=== PATIENT | male | born 1965 | race Caucasian/White ===

== ENCOUNTER 2023-01-02 09:00 | Emergency (ER) | payer BC ==
[2023-01-02 09:06] VITALS: TEMP 97
[2023-01-02] MEDS ORDERED: MORPHINE SULFATE 2 MG INJ IV ONE (09:11)
[2023-01-02] MEDS ORDERED: Nitrostat 0.4 MG (ED) SL ONE ×2 (09:11→09:17)
[2023-01-02] MEDS ORDERED: Zofran 4 MG/2 ML VIAL IV ONE (09:11)
--- NOTE | 2023-01-02 09:11 | ERPHSYRPT ---
- History of Present Illness Time Seen by Provider: 01/02/23 09:06 Historian: patient Exam Limitations: no limitations Physician History: This is a 57-year-old white male patient who presents to the emergency room with chest pain that began yesterday. It is sharp, located in the left anterior chest and goes straight through to his left scapula and down his left arm. Patient has a history of myocardial infarction and is on Plavix. His small animal caretaker is Dr. Jimenez. He just saw his small animal caretaker 2 weeks ago and everything checked out fine. Patient took all of his medication this morning except for his lisinopril. He states his potassium has been running high and so we held off on his lisinopril today. He did start a new lipid-lowering agent within the last couple of weeks. Patient denies shortness of breath. He has no fever, he denies cough. Patient took his Plavix and a full strength aspirin prior to arrival. He did not take any nitroglycerin. Timing/Duration: yesterday Quality: sharpness, stabbing Location: other (Left anterior chest) Chest Pain Radiation: arm (Left arm), back (Straight through to his left scapula) Severity of Pain-Max: mild (To moderate) Severity of Pain-Current: mild (To moderate) Modifying Factors: Improves With: nothing Associated Symptoms: denies symptoms Prior Chest Pain/Cardiac Workup: cardiac cath, heart attack Nitro Today/Relief: no nitro taken today Aspirin Treatment Today: 325 mg x 1, provided at home Allergies/Adverse Reactions: No Known Drug Allergies Allergy (Unverified 01/02/23 09:02) Travel Risk - International Travel Have you traveled outside of the country in past 3 weeks: No - Coronavirus Screening Are you exhibiting any of the following symptoms?: No Close contact with a COVID-19 positive Pt in past 14-21 Days: No - Review of Systems Constitutional: No Symptoms Eyes: No Symptoms Ears, Nose, & Throat: No Symptoms Respiratory: No Symptoms Cardiac: Chest Pain Abdominal/Gastrointestinal: No Symptoms Genitourinary Symptoms: No Symptoms Musculoskeletal: No Symptoms Skin: No Symptoms Neurological: No Symptoms Psychological: No Symptoms Endocrine: No Symptoms Hematologic/Lymphatic: No Symptoms Immunological/Allergic: No Symptoms All Other Systems: Reviewed and Negative - Past Medical History Pertinent Past Medical History: Yes Cardiac History: High Cholesterol, Hypertension Endocrine Medical History: Diabetes Type II - Past Surgical History Past Surgical History: Yes Cardiac: Cardiac Catheterization, Cardiac Stent - Social History Drug Use: none - Nursing Vital Signs Nursing Vital Signs: Initial Vital Signs Pulse Rate 70 01/02/23 09:01 Pain Scale Pain Intensity 3 - Physical Exam General Appearance: no apparent distress, alert, anxiety Eye Exam: PERRL/EOMI, eyes nml inspection Ears, Nose, Throat Exam: normal ENT inspection, moist mucous membranes Neck Exam: normal inspection, non-tender, supple, full range of motion Respiratory Exam: normal breath sounds, chest tenderness, lungs clear, airway intact, No respiratory distress Cardiovascular Exam: regular rate/rhythm, normal heart sounds, normal peripheral pulses Gastrointestinal/Abdomen Exam: soft, normal bowel sounds, No tenderness Rectal Exam: not done Back Exam: normal inspection, normal range of motion, No CVA tenderness, No vertebral tenderness Extremity Exam: normal inspection, normal range of motion, pelvis stable Neurologic Exam: alert, oriented x 3, cooperative, peanut sheller II-XII nml as tested, normal mood/affect, nml cerebellar function, nml station & gait, sensation nml Skin Exam: normal color, warm, dry Lymphatic Exam: No adenopathy SpO2 Interpretation: normal SpO2: 98 O2 Delivery: Room Air - Course Nursing assessment & vital signs reviewed: Yes EKG Interpreted by Me: RATE (76), Sinus Rhythm, NORMAL AXIS, NORMAL INTERVALS, NORMAL QRS, Non-specific ST Changes, Other (No acute ischemic changes on today's twelve-lead EKG.) Ordered Tests: Active Orders 24 hr Category Date Time Status EKG-ER Only STAT Care 01/02/23 09:11 Active IV Insertion STAT Care 01/02/23 09:11 Active Pulse Oximetry (ED) STAT Care 01/02/23 09:11 Active CHEST 1 VIEW (PORTABLE) Stat Exams 01/02/23 09:21 Taken CBC W DIFF Stat Lab 01/02/23 09:00 Completed CMP Stat Lab 01/02/23 09:00 Completed D-DIMER QUANTITATIVE Stat Lab 01/02/23 09:00 Completed NT PRO BNPII Stat Lab 01/02/23 09:00 Completed TROPONIN Q4H Lab 01/02/23 09:00 Completed TROPONIN Q4H Lab 01/02/23 12:54 Completed TROPONIN Q4H Lab 01/02/23 17:15 Ordered Medication Summary Discontinued Medications Generic Name Dose Route Start Last Admin Trade Name Michelle PRN Reason Stop Dose Admin Morphine Sulfate 2 mg 01/02/23 09:11 01/02/23 09:20 Morphine Sulfate 2 Mg/Ml Inj IV 01/02/23 09:12 2 mg STAT ONE Administration Morphine Sulfate Confirm 01/02/23 09:17 Morphine Sulfate 2 Mg/Ml Inj Administered 01/02/23 09:18 Dose 2 mg .ROUTE .STK-MED ONE Nitroglycerin 0.4 mg 01/02/23 09:11 01/02/23 09:21 Nitroglycerin 0.4 Mg (Ed) 0.4 Mg Tab.Subl SL 01/02/23 09:12 0.4 mg STAT ONE Administration Nitroglycerin Confirm 01/02/23 09:17 Nitroglycerin 0.4 Mg (Ed) 0.4 Mg Tab.Subl Administered 01/02/23 09:18 Dose 0.4 mg SL .STK-MED ONE Ondansetron HCl 4 mg 01/02/23 09:11 01/02/23 09:20 Ondansetron Hcl 4 Mg/2 Ml Vial IV 01/02/23 09:12 4 mg STAT ONE Administration Ondansetron HCl Confirm 01/02/23 09:17 Ondansetron Hcl 4 Mg/2 Ml Vial Administered 01/02/23 09:18 Dose 4 mg .ROUTE .STK-MED ONE Lab/Rad Data: Laboratory Result Diagrams 01/02/23 09:00 01/02/23 09:00 Laboratory Results 01/02/23 01/02/23 01/02/23 Range/Units 12:54 09:00 09:00 WBC (4.0-10.5) x10^3/uL RBC (4.1-5.6) x10^6/uL Hgb (12.5-18.0) g/dL Hct (42-50) % MCV (78-100) fL MCH (26-32) pg MCHC (32-36) g/dL RDW (11.5-14.0) % Plt Count (150-450) x10^3/uL MPV (7.5-11.0) fL Gran % (36.0-66.0) % Immature Gran % (Auto) (0.00-0.4) % Nucleat RBC Rel Count (0.00-0.1) % Eos # (Auto) (0-0.5) x10^3/uL Immature Gran # (Auto) (0.00-0.03) x10^3u/L Absolute Lymphs (auto) (1.0-4.6) x10^3/uL Absolute Monos (auto) (0.0-1.3) x10^3/uL Absolute Nucleated RBC (0.00-0.01) x10^3u/L Lymphocytes % (24.0-44.0) % Monocytes % (0.0-12.0) % Eosinophils % (0.00-5.0) % Basophils % (0.0-0.4) % Absolute Granulocytes (1.4-6.9) x10^3/uL Basophils # (0-0.4) x10^3/uL D-Dimer 0.20 (0.0-0.50) mg/L Sodium (137-145) mmol/L Potassium (3.5-5.1) mmol/L Chloride (98-107) mmol/L Carbon Dioxide (22-30) mmol/L Anion Gap (5-15) MEQ/L BUN (9-20) mg/dL Creatinine (0.66-1.25) mg/dL Estimated GFR ML/MIN Glucose (74-106) mg/dL Calcium (8.4-10.2) mg/dL Total Bilirubin (0.2-1.3) mg/dL AST (17-59) U/L ALT (0-50) U/L Alkaline Phosphatase (38-126) U/L Troponin I < 0.012 < 0.012 (0.000-0.034) ng/mL NT-Pro-B Natriuret Pep (<300) pg/mL Serum Total Protein (6.3-8.2) g/dL Albumin (3.5-5.0) g/dL 01/02/23 01/02/23 Range/Units 09:00 09:00 WBC 7.5 (4.0-10.5) x10^3/uL RBC 4.46 (4.1-5.6) x10^6/uL Hgb 14.7 (12.5-18.0) g/dL Hct 40.9 L (42-50) % MCV 91.7 (78-100) fL MCH 33.0 H (26-32) pg MCHC 35.9 (32-36) g/dL RDW 11.2 L (11.5-14.0) % Plt Count 253 (150-450) x10^3/uL MPV 8.8 (7.5-11.0) fL Gran % 53.7 (36.0-66.0) % Immature Gran % (Auto) 0.5 H (0.00-0.4) % Nucleat RBC Rel Count 0.0 (0.00-0.1) % Eos # (Auto) 0.28 (0-0.5) x10^3/uL Immature Gran # (Auto) 0.04 H (0.00-0.03) x10^3u/L Absolute Lymphs (auto) 2.47 (1.0-4.6) x10^3/uL Absolute Monos (auto) 0.62 (0.0-1.3) x10^3/uL Absolute Nucleated RBC 0.00 (0.00-0.01) x10^3u/L Lymphocytes % 32.9 (24.0-44.0) % Monocytes % 8.3 (0.0-12.0) % Eosinophils % 3.7 (0.00-5.0) % Basophils % 0.9 (0.0-0.4) % Absolute Granulocytes 4.02 (1.4-6.9) x10^3/uL Basophils # 0.07 (0-0.4) x10^3/uL D-Dimer (0.0-0.50) mg/L Sodium 136 L (137-145) mmol/L Potassium 4.3 (3.5-5.1) mmol/L Chloride 103 (98-107) mmol/L Carbon Dioxide 23 (22-30) mmol/L Anion Gap 14.5 (5-15) MEQ/L BUN 15 (9-20) mg/dL Creatinine 0.71 (0.66-1.25) mg/dL Estimated GFR > 60.0 ML/MIN Glucose 235 H (74-106) mg/dL Calcium 9.4 (8.4-10.2) mg/dL Total Bilirubin 0.70 (0.2-1.3) mg/dL AST 25 (17-59) U/L ALT 35 (0-50) U/L Alkaline Phosphatase 65 (38-126) U/L Troponin I (0.000-0.034) ng/mL NT-Pro-B Natriuret Pep < 20.0 (<300) pg/mL Serum Total Protein 6.8 (6.3-8.2) g/dL Albumin 4.4 (3.5-5.0) g/dL - Progress Air Movement: good Progress Note: 01/02/23 09:42 Chest x-ray shows no acute cardiopulmonary process. This chest x-ray was interpreted by me. The patient's medical issue is 1 of moderate complexity. The level of complexity in the work-up performed is based on review of the patient's past medical history, review of the patient medication list, review of the patient's drug allergy list, history of present illness and physical findings on examination. The work-up in this patient includes a chest x-ray, twelve-lead EKG, troponin level, D-dimer level, CBC and CMP. I reviewed the, and interpreted the chest x-ray as above. We will follow-up on the remainder of the studies and determine the next steps in this patient's management. 01/02/23 12:37 Repeat, 3-hour twelve-lead EKG was performed and I interpreted it. The heart rate is 67 bpm. There is normal axis. It is sinus rhythm. There is normal intervals. There are nonspecific ST changes. This twelve-lead EKG is not d ifferent than the one performed 3 hours ago. There are no acute ischemic changes on this repeat twelve-lead EKG. Clinically, the patient was reexamined. There is resolution of his chest pain. He has no short of breath. 01/02/23 12:39 We are waiting the 3-hour troponin level. If this level is normal, we will discharge the patient to home. Patient is to call his small animal caretaker on the morning of 01/03/2023 to make arrangements for a follow-up appointment for further evaluation and management. Blood Culture(s) Obtained: No Antibiotics given: No Counseled pt/family regarding: lab results, diagnosis, need for follow-up, rad results Medical Desision Making - Independent Historian Additional History obtained from: Spouse - Diagnostic Testing Diagnostic test were ordered, analyzed, and reviewed by me: Yes Radiological Interpretation: Interpreted by me, Reviewed by me - Risk of complications Low Risk: Low risk of morbidity from additional dx testing or treatment - Departure Departure Disposition: Home Clinical Impression: Chest pain Condition: Stable Critical Care Time: No Referrals: TYRONE GREEN [Primary Care Provider] - Follow up/PCP as directed Additional Instructions: Take your medication as prescribed. Call your small animal caretaker on the morning of 01/03/2023 to make arrangements for follow-up appointment for further evaluation and management.
[2023-01-02] MEDS ORDERED: MORPHINE SULFATE 2 MG INJ ONE (09:17)
[2023-01-02] MEDS ORDERED: Zofran 4 MG/2 ML VIAL ONE (09:17)
[2023-01-02 09:26] LABS: Absolute Neutrophil Ct (ANC) 4.02 x10^3/uL (1.4-6.9); BASOPHIL % 0.9 % (0.0-0.4); Basophil (Absolute #) 0.07 x10^3/uL (0-0.4); Eosinophil % 3.7 % (0.00-5.0); Eosinophil (Absolute #) 0.28 x10^3/uL (0-0.5); Hematocrit 40.9 % (42-50); Hemoglobin 14.7 g/dL (12.5-18.0); IMMATURE GRAN # 0.04 x10^3u/L (0.00-0.03); IMMATURE GRAN % 0.5 % (0.00-0.4); Lymphocyte (Absolute #) 2.47 x10^3/uL (1.0-4.6); Lymphocytes % 32.9 % (24.0-44.0); Mean Cell Volume 91.7 fL (78-100); Mean Corpuscular Hgb Concent. 35.9 g/dL (32-36); Mean Platelet Volume 8.8 fL (7.5-11.0); Monocyte (Absolute #) 0.62 x10^3/uL (0.0-1.3); Monocytes % 8.3 % (0.0-12.0); Neutrophil % 53.7 % (36.0-66.0); Platelet Count 253 x10^3/uL (150-450); Red Blood Count 4.46 x10^6/uL (4.1-5.6); Red Cell Distribution Width 11.2 % (11.5-14.0); White Blood Count 7.5 x10^3/uL (4.0-10.5)
[2023-01-02 09:48] LABS: ALBUMIN 4.4 g/dL (3.5-5.0); ALKALINE PHOSPHATASE 65 U/L (38-126); ANION GAP 14.5 MEQ/L (5-15); BLOOD UREA NITROGEN 15 mg/dL (9-20); CHLORIDE 103 mmol/L (98-107); Calcium 9.4 mg/dL (8.4-10.2); Carbon Dioxide 23 mmol/L (22-30); Creatinine 1 0.71 mg/dL (0.66-1.25); EST GLOMERULAR FILTRATION RATE > 60.0 ML/MIN; Glucose 235 mg/dL (74-106); NT PRO BNPII < 20.0 pg/mL (<300); Potassium 4.3 mmol/L (3.5-5.1); SGOT/AST 25 U/L (17-59); SGPT/ALT 35 U/L (0-50); SODIUM 136 mmol/L (137-145); Total Protein 6.8 g/dL (6.3-8.2)
[2023-01-02 12:42] VITALS: O2SAT 98
[2023-01-02 13:38] VITALS: BP 159/75; PULSE 70; RESP 19
--- NOTE | 2023-01-02 19:46 | XRAY ---
Indication: Chest pain Comparison: None Portable apical lordotic chest inflated and clear. Heart and mediastinal structures within normal limits. Bony thorax intact with mild degenerative changes. Impression: Nonacute chest.
== END 2023-01-02 13:42 | disposition home or self-care (01) ==
LOC: ED 09:00
DX: R07.9 Chest pain, unspecified (principal); E78.5 Hyperlipidemia, unspecified; I10 Essential (primary) hypertension; E11.9 Type 2 diabetes mellitus without complications; Z79.02 Long term (current) use of antithrombotics/antiplatelets; Z79.899 Other long term (current) drug therapy
CPT/HCPCS: 36000; 36415; 71045; 80053; 83880; 84484; 85025; 85379; 93005; 93041; 94760; 96374; 96375; 99284; J2270; J2405; A9270-GY

== ENCOUNTER 2024-07-16 08:35 | Emergency (ER) | payer BC, OTHER ==
[2024-07-16 08:39] VITALS: TEMP 97.5
[2024-07-16 08:57] LABS: Absolute Neutrophil Ct (ANC) 5.53 x10^3/uL (1.78-5.38); BASOPHIL % 0.8 % (0.2-1.2); Basophil (Absolute #) 0.07 x10^3/uL (0.01-0.08); Eosinophil % 1.8 % (0.8-7.0); Eosinophil (Absolute #) 0.15 x10^3/uL (0.04-0.54); Hematocrit 43.6 % (40.1-51.0); Hemoglobin 16.1 g/dL (13.7-17.5); IMMATURE GRAN # 0.03 x10^3u/L (0.001-0.031); IMMATURE GRAN % 0.4 % (0.001-0.429); Lymphocyte (Absolute #) 1.87 x10^3/uL (1.32-3.57); Lymphocytes % 21.8 % (21.8-53.1); Mean Cell Volume 89.2 fL (79.0-92.2); Mean Corpuscular Hemoglobin 32.9 pg (25.7-32.2); Mean Corpuscular Hgb Concent. 36.9 g/dL (32.3-36.5); Mean Platelet Volume 8.2 fL (9.4-12.4); Monocyte (Absolute #) 0.91 x10^3/uL (0.30-0.82); Monocytes % 10.6 % (5.3-12.2); Neutrophil % 64.6 % (34.0-67.9); Platelet Count 291 x10^3/uL (163-337); Red Blood Count 4.89 x10^6/uL (4.63-6.08); Red Cell Distribution Width 11.7 % (11.6-14.4); White Blood Count 8.6 x10^3/uL (4.23-9.07)
--- NOTE | 2024-07-16 09:01 | ERPHSYRPT ---
- History of Present Illness Time Seen by Provider: 07/16/24 08:40 Historian: patient Exam Limitations: no limitations Patient Subjective Stated Complaint: pt here for burning to chest,nausea, dizziness off and on since tuesday, he started 2 new meds and thinks maybe that i s the cause. he stopped taking them Triage Nursing Assessment: pt alert, walked in, resp easy, skin w.d.p, chest clear, abd soft, moves all ext well. Physician History: This is a 58-year-old white male patient who sees printer helper Dr. Jimenez and h as a history of cardiac stent and is on Plavix. He also has a history of hypertension, hyperlipidemia and type 2 diabetes. On Tuesday prior to this evaluation, the patient has noticed intermittent heartburn symptoms, left chest fluttering. He started a new medicine, Farxiga on Tuesday. He thought that this may be contributing to his symptoms so he stopped that medicine. He has had various locations of the intermittent fluttering. Today, he has some dizziness symptoms. He is not short of breath. He has had no nausea vomiting or diarrhea symptoms. Timing/Duration: day(s) (3), intermittent Quality: burning, other (Fluttering) Severity of Pain-Max: mild Severity of Pain-Current: mild Modifying Factors: Improves With: nothing Associated Symptoms: dizziness, No shortness of breath, No cough Prior Chest Pain/Cardiac Workup: cardiac cath, heart attack Nitro Today/Relief: no nitro taken today Aspirin Treatment Today: 81 mg x 4, provided by ED Allergies/Adverse Reactions: albuterol Adverse Reaction (Verified 07/16/24 08:37) Hx Tetanus, Diphtheria Vaccination/Date Given: No Hx Influenza Vaccination/Date Given: No Hx Pneumococcal Vaccination/Date Given: No Immunizations Up to Date: No Travel Risk - International Travel Have you traveled outside of the country in past 3 weeks: No - Emerging Infectious Disease Are you exhibiting symptoms associated with any current EIDs: No - Review of Systems Constitutional: No Symptoms Eyes: No Symptoms Ears, Nose, & Throat: No Symptoms Respiratory: No Symptoms Cardiac: Chest Pain (Described as left anterior fluttering sensation without radiation) Abdominal/Gastrointestinal: No Symptoms Genitourinary Symptoms: No Symptoms Musculoskeletal: No Symptoms Skin: No Symptoms Neurological: Dizziness (Remittent. None now) Psychological: No Symptoms Endocrine: No Symptoms Hematologic/Lymphatic: No Symptoms Immunological/Allergic: No Symptoms All Other Systems: Reviewed and Negative - Past Medical History Pertinent Past Medical History: Yes Cardiac History: Coronary Artery Disease, High Cholesterol, Hypertension Endocrine Medical History: Diabetes Type II - Past Surgical History Past Surgical History: Yes Cardiac: Cardiac Catheterization, Cardiac Stent - Social History Smoking Status: Current every day smoker Exposure to second hand smoke: Yes Drug Use: none - Social Determinants of Health Will the patient participate in the screening: Declined to provide - Nursing Vital Signs Nursing Vital Signs: Initial Vital Signs Temperature 97.5 F 07/16/24 08:38 Pulse Rate 86 07/16/24 08:38 Respiratory Rate 22 07/16/24 08:38 Blood Pressure 178/99 07/16/24 08:38 O2 Sat by Pulse Oximetry 100 07/16/24 08:38 Pain Scale Pain Intensity 0 - Physical Exam General Appearance: no apparent distress, alert, anxiety Eye Exam: PERRL/EOMI, eyes nml inspection Ears, Nose, Throat Exam: normal ENT inspection, moist mucous membranes Neck Exam: normal inspection, non-tender, supple, full range of motion Respiratory Exam: normal breath sounds, chest tenderness (Grabbed his left anterior chest fluttering), lungs clear, airway intact, No respiratory distress Cardiovascular Exam: regular rate/rhythm, normal heart sounds, normal peripheral pulses Gastrointestinal/Abdomen Exam: soft, normal bowel sounds, No tenderness Rectal Exam: not done Back Exam: normal inspection, normal range of motion, No CVA tenderness, No vertebral tenderness Extremity Exam: normal inspection, normal range of motion, pelvis stable Neurologic Exam: alert, oriented x 3, cooperative, polymer engineer II-XII nml as tested, normal mood/affect, nml cerebellar function, nml station & gait, sensation nml Skin Exam: normal color, warm, dry Lymphatic Exam: No adenopathy SpO2 Interpretation: normal SpO2: 95 O2 Delivery: Room Air - Course Nursing assessment & vital signs reviewed: Yes EKG Interpreted by Me: RATE (82), Sinus Rhythm, NORMAL AXIS, NORMAL INTERVALS, NORMAL QRS, NORMAL ST-T, Other (No acute ischemia on today's twelve-lead EKG. QTc is 463) Ordered Tests: Active Orders 24 hr Category Date Time Status High Wire Artist STAT Care 07/16/24 08:44 Active EKG-ER Only STAT Care 07/16/24 08:44 Active IV Insertion STAT Care 07/16/24 08:44 Active Pulse Oximetry (ED) STAT Care 07/16/24 08:44 Active CBC W DIFF Stat Lab 07/16/24 08:57 Completed CMP Stat Lab 07/16/24 08:57 Completed MAG [MAGNESIUM] Stat Lab 07/16/24 08:57 Completed NT PRO BNPII Stat Lab 07/16/24 08:57 Completed PROTIME WITH INR Stat Lab 07/16/24 08:57 Completed TROPONIN Q4H Lab 07/16/24 08:57 Completed TROPONIN Q4H Lab 07/16/24 11:02 Completed TROPONIN Q4H Lab 07/16/24 16:45 Ordered Medication Summary Discontinued Medications Generic Name Dose Route Start Last Admin Trade Name Freq PRN Reason Stop Dose Admin Aspirin 324 mg 07/16/24 08:44 07/16/24 09:10 Aspirin 81 Mg Tab.Chew PO 07/16/24 08:45 324 mg STAT ONE Administration Aspirin Confirm 07/16/24 09:09 Aspirin 81 Mg Tab.Chew Administered 07/16/24 09:10 Dose 324 mg .ROUTE .STK-MED ONE Lab/Rad Data: Laboratory Result Diagrams 07/16/24 08:57 07/16/24 08:57 Laboratory Results 07/16/24 07/16/24 07/16/24 Range/Units 11:02 08:57 08:57 WBC (4.23-9.07) x10^3/uL RBC (4.63-6.08) x10^6/uL Hgb (13.7-17.5) g/dL Hct (40.1-51.0) % MCV (79.0-92.2) fL MCH (25.7-32.2) pg MCHC (32.3-36.5) g/dL RDW (11.6-14.4) % Plt Count (163-337) x10^3/uL MPV (9.4-12.4) fL Gran % (34.0-67.9) % Immature Gran % (Auto) (0.001-0.429) % Nucleat RBC Rel Count (0.00-0.2) % Eos # (Auto) (0.04-0.54) x10^3/uL Immature Gran # (Auto) (0.001-0.031) x10^3u/L Absolute Lymphs (auto) (1.32-3.57) x10^3/uL Absolute Monos (auto) (0.30-0.82) x10^3/uL Absolute Nucleated RBC (0.00-0.012) x10^3u/L Lymphocytes % (21.8-53.1) % Monocytes % (5.3-12.2) % Eosinophils % (0.8-7.0) % Basophils % (0.2-1.2) % Absolute Granulocytes (1.78-5.38) x10^3/uL Basophils # (0.01-0.08) x10^3/uL PT 11.8 (9.4-12.5) SECONDS INR 1.09 (0.8-3.0) Sodium (135-145) mmol/L Potassium (3.5-5.1) mmol/L Chloride (98-107) mmol/L Carbon Dioxide (22-30) mmol/L Anion Gap (5-15) MEQ/L BUN (9-20) mg/dL Creatinine (0.66-1.25) mg/dL Estimated GFR ML/MIN Glucose (74-106) mg/dL Calcium (8.4-10.2) mg/dL Magnesium 2.1 (1.6-2.3) mg/dL Total Bilirubin (0.2-1.3) mg/dL AST (17-59) U/L ALT (0-50) U/L Alkaline Phosphatase (38-126) U/L Troponin I < 0.012 < 0.012 (0.000-0.033) ng/mL NT-Pro-B Natriuret Pep (<300) pg/mL Serum Total Protein (6.3-8.2) g/dL Albumin (3.5-5.0) g/dL 07/16/24 07/16/24 Range/Units 08:57 08:57 WBC 8.6 (4.23-9.07) x10^3/uL RBC 4.89 (4.63-6.08) x10^6/uL Hgb 16.1 (13.7-17.5) g/dL Hct 43.6 (40.1-51.0) % MCV 89.2 (79.0-92.2) fL MCH 32.9 H (25.7-32.2) pg MCHC 36.9 H (32.3-36.5) g/dL RDW 11.7 (11.6-14.4) % Plt Count 291 (163-337) x10^3/uL MPV 8.2 L (9.4-12.4) fL Gran % 64.6 (34.0-67.9) % Immature Gran % (Auto) 0.4 (0.001-0.429) % Nucleat RBC Rel Count 0.0 (0.00-0.2) % Eos # (Auto) 0.15 (0.04-0.54) x10^3/uL Immature Gran # (Auto) 0.03 (0.001-0.031) x10^3u/L Absolute Lymphs (auto) 1.87 (1.32-3.57) x10^3/uL Absolute Monos (auto) 0.91 H (0.30-0.82) x10^3/uL Absolute Nucleated RBC 0.00 (0.00-0.012) x10^3u/L Lymphocytes % 21.8 (21.8-53.1) % Monocytes % 10.6 (5.3-12.2) % Eosinophils % 1.8 (0.8-7.0) % Basophils % 0.8 (0.2-1.2) % Absolute Granulocytes 5.53 H (1.78-5.38) x10^3/uL Basophils # 0.07 (0.01-0.08) x10^3/uL PT (9.4-12.5) SECONDS INR (0.8-3.0) Sodium 138 (135-145) mmol/L Potassium 4.0 (3.5-5.1) mmol/L Chloride 100 (98-107) mmol/L Carbon Dioxide 24 (22-30) mmol/L Anion Gap 18.5 H (5-15) MEQ/L BUN 10 (9-20) mg/dL Creatinine 0.90 (0.66-1.25) mg/dL Estimated GFR 100.2 ML/MIN Glucose 163 H (74-106) mg/dL Calcium 10.0 (8.4-10.2) mg/dL Magnesium (1.6-2.3) mg/dL Total Bilirubin 1.10 (0.2-1.3) mg/dL AST 37 (17-59) U/L ALT 36 (0-50) U/L Alkaline Phosphatase 64 (38-126) U/L Troponin I (0.000-0.033) ng/mL NT-Pro-B Natriuret Pep < 20.0 (<300) pg/mL Serum Total Protein 8.1 (6.3-8.2) g/dL Albumin 5.1 H (3.5-5.0) g/dL - Progress Progress: improved, re-examined Air Movement: good Progress Note: 07/16/24 09:00 My medical decision making and the assignment of moderate complexity to this patient's medical issue today is based on review of the patient's past medical history, review of the patient's medication list, reviewed patient drug allergy list, history present illness and physical findings on examination. The workup in this patient includes placement of intravenous line, 4 baby aspirin chewable, CBC, CMP, magnesium level, BNP, troponin level, twelve-lead EKG. Differential diagnosis includes but is not limited to myocardial infarction, arrhythmia, electrolyte abnormalities, anxiety about health 07/16/24 11:39 I interpreted the patient's laboratory data results. Based on the laboratory data results, there are no acute, emergent medical issues. I interpreted the repeat, 2-hour, twelve-lead EKG that was performed on 07/16/2024 at 1107. The heart rate is 76. The pattern is sinus rhythm. There is normal axis, normal QRS and normal intervals. There is no evidence of any acute ischemia. QTc is 471 Blood Culture(s) Obtained: No Antibiotics given: No Counseled pt/family regarding: lab results, diagnosis, need for follow-up Medical Desision Making - Diagnostic Testing Diagnostic test were ordered, analyzed, and reviewed by me: Yes - Risk of complications Low Risk: Low risk of morbidity from additional dx testing or treatment - Departure Departure Disposition: Home Clinical Impression: Nonspecific chest pain Condition: Stable Critical Care Time: No Referrals: TYRONE GREEN [Primary Care Provider] - Follow up/PCP as directed Additional Instructions: Take all your medications as prescribed. Call your primary care provider and your printer helper today, 07/16/2024, to make arranges for follow-up appointment and to be seen in the next 3 to 5 days.
[2024-07-16] MEDS ORDERED: BABY ASPIRIN 81 MG CHEW ONE (09:09)
[2024-07-16] MEDS: BABY ASPIRIN 81 MG CHEW PO ONE (09:10)
[2024-07-16 09:11] LABS: INR 1.09 (0.8-3.0); PROTIME 11.8 SECONDS (9.4-12.5)
[2024-07-16 09:22] LABS: ALBUMIN 5.1 g/dL (3.5-5.0); ALKALINE PHOSPHATASE 64 U/L (38-126); ANION GAP 18.5 MEQ/L (5-15); BLOOD UREA NITROGEN 10 mg/dL (9-20); CHLORIDE 100 mmol/L (98-107); Carbon Dioxide 24 mmol/L (22-30); EST GLOMERULAR FILTRATION RATE 100.2 ML/MIN; Glucose 163 mg/dL (74-106); NT PRO BNPII < 20.0 pg/mL (<300); SGOT/AST 37 U/L (17-59); SGPT/ALT 36 U/L (0-50); SODIUM 138 mmol/L (135-145); Total Protein 8.1 g/dL (6.3-8.2)
[2024-07-16 09:24] LABS: MAGNESIUM 2.1 mg/dL (1.6-2.3); TROPONIN < 0.012 ng/mL (0.000-0.033)
[2024-07-16 11:28] VITALS: BP 158/97
[2024-07-16 12:14] VITALS: PULSE 70; RESP 18; O2SAT 97
== END 2024-07-16 12:14 | disposition home or self-care (01) ==
LOC: ED 08:35
DX: R07.9 Chest pain, unspecified (principal); R42 Dizziness and giddiness; I10 Essential (primary) hypertension; E11.9 Type 2 diabetes mellitus without complications; E78.5 Hyperlipidemia, unspecified; Z79.02 Long term (current) use of antithrombotics/antiplatelets; Z79.84 Long term (current) use of oral hypoglycemic drugs; Z72.0 Tobacco use
CPT/HCPCS: 36415; 80053; 83735; 83880; 84484; 85025; 85610; 93005; 93041; 94760; 99284; A9270-GY

== ENCOUNTER 2024-09-27 15:37 | Observation (INO) | payer BC, OTHER ==
[2024-09-27 16:36] LABS: Absolute Neutrophil Ct (ANC) 5.05 x10^3/uL (1.78-5.38); BASOPHIL % 0.9 % (0.2-1.2); Basophil (Absolute #) 0.08 x10^3/uL (0.01-0.08); Eosinophil % 2.3 % (0.8-7.0); Eosinophil (Absolute #) 0.21 x10^3/uL (0.04-0.54); Hemoglobin 15.6 g/dL (13.7-17.5); IMMATURE GRAN # 0.01 x10^3u/L (0.001-0.031); IMMATURE GRAN % 0.1 % (0.001-0.429); Lymphocyte (Absolute #) 3.03 x10^3/uL (1.32-3.57); Lymphocytes % 32.7 % (21.8-53.1); Mean Cell Volume 87.5 fL (79.0-92.2); Mean Corpuscular Hemoglobin 32.5 pg (25.7-32.2); Mean Corpuscular Hgb Concent. 37.1 g/dL (32.3-36.5); Mean Platelet Volume 8.4 fL (9.4-12.4); Monocyte (Absolute #) 0.89 x10^3/uL (0.30-0.82); Monocytes % 9.6 % (5.3-12.2); Neutrophil % 54.4 % (34.0-67.9); Platelet Count 301 x10^3/uL (163-337); Red Cell Distribution Width 11.4 % (11.6-14.4); White Blood Count 9.3 x10^3/uL (4.23-9.07)
[2024-09-27 16:42] LABS: Appearance Clear (Clear); Bacteria None Seen /HPF (None Seen); Bilirubin Negative (Negative); Blood Negative (Negative); Epithelial Cells None Seen /HPF (None Seen); Glucose, Urine Negative (Negative); Hyaline Casts NONE SEEN /LPF (0-2); Ketones Negative (Negative); Leukocyte Esterase Negative (Negative); Nitrite Negative (Negative); Protein,Urine Dip Negative (Negative); RBC 0-2 /HPF (0-5); Specific Gravity <=1.005 (1.005-1.030); Urobilinogen 0.2 mg/dL (0.2); WBC 0-2 /HPF (0-5)
--- NOTE | 2024-09-27 17:04 | ERPHSYRPT ---
- History of Present Illness Time Seen by Provider: 09/27/24 16:30 Source: patient Exam Limitations: no limitations Patient Subjective Stated Complaint: pt states that he thinks his diabetes medication is causing lightheadness. pt states the problems began when he began to take farxiga. 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 Patient states he has been experiencing brain fog for the past couple days. Patient has been extremely sleepy. Patient believes that his symptoms are due to taking his 's Trulicity on Tuesday. Patient started to feel unwell. He felt that it was because of the Farxiga. So decided to take Trulicity instead. Patient correlates the onset of symptoms with the administration of this medication. Patient is normally on Farxiga. Symptoms are moderate in intensity. No specific worsening or improving factors. Patient otherwise feels well. He voices no other complaints or concerns at this time. Accu-Chek upon arrival was 164 Portions of this note were created with voice recognition technology. There may be grammatical, spelling, punctuation or sound alike errors Timing/Duration: today Severity: moderate Modifying Factors: Improves With: nothing Associated Symptoms: denies symptoms Allergies/Adverse Reactions: albuterol Adverse Reaction (Verified 09/27/24 15:45) Home Medications: Amlodipine Besylate 10 mg PO DAILY 09/27/24 [History] Atorvastatin Calcium [Lipitor 20MG Tablet] 40 mg PO DAILY 09/27/24 [History] Clopidogrel Bisulfate [Plavix] 75 mg PO DAILY 09/27/24 [History] Dapagliflozin Propanediol [Farxiga] 10 mg PO DAILY 09/27/24 [History] Evolocumab [Repatha Sureclick] 1 mg SQ WEEKLY 09/27/24 [History] Lisinopril 10 mg [Zestril 10 MG] 10 mg PO DAILY 09/27/24 [History] Metoprolol Tartrate 25 mg [Lopressor 25MG Tab] 25 mg PO DAILY 09/27/24 [History] Tamsulosin HCl 0.4 mg PO DAILY 09/27/24 [History] Hx Tetanus, Diphtheria Vaccination/Date Given: No Hx Influenza Vaccination/Date Given: No Hx Pneumococcal Vaccination/Date Given: No Travel Risk - International Travel Have you traveled outside of the country in past 3 weeks: No - Emerging Infectious Disease Are you exhibiting symptoms associated with any current EIDs: No - Review of Systems Constitutional: No Symptoms, No Fever, No Chills Eyes: No Symptoms Ears, Nose, & Throat: No Symptoms Respiratory: No Symptoms, No Cough, No Dyspnea Cardiac: No Symptoms, No Chest Pain, No Edema, No Syncope Abdominal/Gastrointestinal: No Symptoms, No Abdominal Pain, No Nausea, No Vomiting, No Diarrhea Genitourinary Symptoms: No Symptoms, No Dysuria Musculoskeletal: No Symptoms, No Back Pain, No Neck Pain Skin: No Symptoms, No Rash Neurological: No Symptoms, No Dizziness, No Focal Weakness, No Sensory Changes Psychological: No Symptoms Endocrine: No Symptoms Hematologic/Lymphatic: No Symptoms Immunological/Allergic: No Symptoms All Other Systems: Reviewed and Negative - Past Medical History Pertinent Past Medical History: Yes Cardiac History: Coronary Artery Disease, High Cholesterol, Hypertension Endocrine Medical History: Diabetes Type II - Past Surgical History Past Surgical History: Yes Cardiac: Cardiac Catheterization, Cardiac Stent - Social History Smoking Status: Current every day smoker Exposure to second hand smoke: Yes Drug Use: none - Social Determinants of Health Will the patient participate in the screening: Yes Do you worry about a steady place to live?: No Do you have any problems with any of the following?: No known problems In the past 12 months,have you had to go without utilities?: No Transportation Issues: No Has anyone in your support network made you feel unsafe?: No Have you or anyone in your house had to go w/o enough food: No - Nursing Vital Signs Nursing Vital Signs: Initial Vital Signs Temperature 97 F 09/27/24 15:54 Pulse Rate 96 H 09/27/24 15:54 Respiratory Rate 20 09/27/24 15:54 Blood Pressure 172/97 09/27/24 15:54 O2 Sat by Pulse Oximetry 97 09/27/24 15:54 Pain Scale Pain Intensity 2 - Physical Exam General Appearance: no apparent distress, alert Eye Exam: PERRL/EOMI, eyes nml inspection Ears, Nose, Throat Exam: normal ENT inspection, TMs normal, pharynx normal, moist mucous membranes Neck Exam: normal inspection, full range of motion Respiratory Exam: normal breath sounds, lungs clear, No respiratory distress Cardiovascular Exam: regular rate/rhythm, normal heart sounds, normal peripheral pulses Gastrointestinal/Abdomen Exam: soft, normal bowel sounds, No tenderness, No mass Back Exam: normal inspection, normal range of motion, No CVA tenderness, No vertebral tenderness Extremity Exam: normal inspection, normal range of motion, pelvis stable Neurologic Exam: alert, oriented x 3, cooperative, normal mood/affect, nml cerebellar function, nml station & gait, sensation nml, No motor deficits Skin Exam: normal color, warm, dry, No rash Lymphatic Exam: No adenopathy SpO2 Interpretation: normal SpO2: 97 O2 Delivery: Room Air - Course Nursing assessment & vital signs reviewed: Yes EKG Interpreted by Me: RATE (84), Sinus Rhythm, NORMAL AXIS, NORMAL INTERVALS, NORMAL QRS - CT Exams Head CT Interpretation: Tele-radiologist Report (Normal CT head without contrast) Ordered Tests: Active Orders 24 hr Category Date Time Status Producer Arborist Manager STAT Care 09/27/24 16:24 Active EKG-ER Only STAT Care 09/27/24 16:23 Active IV Insertion STAT Care 09/27/24 16:23 Active Pulse Oximetry (ED) STAT Care 09/27/24 16:23 Active HEAD WITHOUT CONTRAST [CT] Stat Exams 09/27/24 16:37 Completed CBC W DIFF Stat Lab 09/27/24 16:00 Completed CMP Stat Lab 09/27/24 16:00 Completed NT PRO BNPII Stat Lab 09/27/24 16:00 Completed POCT GLUCOSE Stat Lab 09/27/24 15:48 Completed TROPONIN Q4H Lab 09/27/24 16:00 Completed TROPONIN Q4H Lab 09/27/24 20:30 Ordered TROPONIN Q4H Lab 09/28/24 00:30 Ordered UA W/RFX UR CULTURE Stat Lab 09/27/24 16:25 Completed Urine Triage Profile Stat Lab 09/27/24 16:25 Completed Transfer Order Routine Transfer 09/27/24 Ordered Lab/Rad Data: Laboratory Result Diagrams 09/27/24 16:00 09/27/24 16:00 Laboratory Results 09/27/24 09/27/24 09/27/24 Range/Units 16:25 16:25 16:00 WBC (4.23-9.07) x10^3/uL RBC (4.63-6.08) x10^6/uL Hgb (13.7-17.5) g/dL Hct (40.1-51.0) % MCV (79.0-92.2) fL MCH (25.7-32.2) pg MCHC (32.3-36.5) g/dL RDW (11.6-14.4) % Plt Count (163-337) x10^3/uL MPV (9.4-12.4) fL Gran % (34.0-67.9) % Immature Gran % (Auto) (0.001-0.429) % Nucleat RBC Rel Count (0.00-0.2) % Eos # (Auto) (0.04-0.54) x10^3/uL Immature Gran # (Auto) (0.001-0.031) x10^3u/L Absolute Lymphs (auto) (1.32-3.57) x10^3/uL Absolute Monos (auto) (0.30-0.82) x10^3/uL Absolute Nucleated RBC (0.00-0.012) x10^3u/L Lymphocytes % (21.8-53.1) % Monocytes % (5.3-12.2) % Eosinophils % (0.8-7.0) % Basophils % (0.2-1.2) % Absolute Granulocytes (1.78-5.38) x10^3/uL Basophils # (0.01-0.08) x10^3/uL Sodium (135-145) mmol/L Potassium (3.5-5.1) mmol/L Chloride (98-107) mmol/L Carbon Dioxide (22-30) mmol/L Anion Gap (5-15) MEQ/L BUN (9-20) mg/dL Creatinine (0.66-1.25) mg/dL Estimated GFR ML/MIN Glucose (74-106) mg/dL POC Glucometer (74 to 106) mg/dL Calcium (8.4-10.2) mg/dL Total Bilirubin (0.2-1.3) mg/dL AST (17-59) U/L ALT (0-50) U/L Alkaline Phosphatase (38-126) U/L Troponin I < 0.012 (0.000-0.033) ng/mL NT-Pro-B Natriuret Pep (<300) pg/mL Serum Total Protein (6.3-8.2) g/dL Albumin (3.5-5.0) g/dL Urine Color Yellow (Yellow) Urine Appearance Clear (Clear) Urine pH 6.0 (4.6-8.0) Ur Specific [place] <=1.005 (1.005-1.030) Urine Protein Negative (Negative) Urine Glucose (UA) Negative (Negative) mg/dL Urine Ketones Negative (Negative) Urine Blood Negative (Negative) Urine Nitrite Negative (Negative) Urine Bilirubin Negative (Negative) Urine Urobilinogen 0.2 (0.2) mg/dL Ur Leukocyte Esterase Negative (Negative) U Hyaline Cast (Auto) NONE SEEN (0-2) /LPF Urine Microscopic RBC 0-2 (0-5) /HPF Urine Microscopic WBC 0-2 (0-5) /HPF Ur Epithelial Cells None Seen (None Seen) /HPF Urine Bacteria None Seen (None Seen) /HPF Urine Culture Reflexed NO (NO) Urine Opiates Level NEGATIVE (NEGATIVE) Ur Methadone NEGATIVE (NEGATIVE) Urine Barbiturates NEGATIVE (NEGATIVE) Ur Phencyclidine (PCP) NEGATIVE (NEGATIVE) Urine Amphetamine NEGATIVE (NEGATIVE) U Benzodiazepine Level NEGATIVE (NEGATIVE) Urine Cocaine NEGATIVE (NEGATIVE) Urine Marijuana (THC) NEGATIVE (NEGATIVE) 09/27/24 09/27/24 09/27/24 Range/Units 16:00 16:00 15:48 WBC 9.3 H (4.23-9.07) x10^3/uL RBC 4.80 (4.63-6.08) x10^6/uL Hgb 15.6 (13.7-17.5) g/dL Hct 42.0 (40.1-51.0) % MCV 87.5 (79.0-92.2) fL MCH 32.5 H (25.7-32.2) pg MCHC 37.1 H (32.3-36.5) g/dL RDW 11.4 L (11.6-14.4) % Plt Count 301 (163-337) x10^3/uL MPV 8.4 L (9.4-12.4) fL Gran % 54.4 (34.0-67.9) % Immature Gran % (Auto) 0.1 (0.001-0.429) % Nucleat RBC Rel Count 0.0 (0.00-0.2) % Eos # (Auto) 0.21 (0.04-0.54) x10^3/uL Immature Gran # (Auto) 0.01 (0.001-0.031) x10^3u/L Absolute Lymphs (auto) 3.03 (1.32-3.57) x10^3/uL Absolute Monos (auto) 0.89 H (0.30-0.82) x10^3/uL Absolute Nucleated RBC 0.00 (0.00-0.012) x10^3u/L Lymphocytes % 32.7 (21.8-53.1) % Monocytes % 9.6 (5.3-12.2) % Eosinophils % 2.3 (0.8-7.0) % Basophils % 0.9 (0.2-1.2) % Absolute Granulocytes 5.05 (1.78-5.38) x10^3/uL Basophils # 0.08 (0.01-0.08) x10^3/uL Sodium 135 (135-145) mmol/L Potassium 3.9 (3.5-5.1) mmol/L Chloride 97 L (98-107) mmol/L Carbon Dioxide 21 L (22-30) mmol/L Anion Gap 21.7 H (5-15) MEQ/L BUN 8 L (9-20) mg/dL Creatinine 0.74 (0.66-1.25) mg/dL Estimated GFR 106.3 ML/MIN Glucose 131 H (74-106) mg/dL POC Glucometer 164 H (74 to 106) mg/dL Calcium 9.9 (8.4-10.2) mg/dL Total Bilirubin 0.90 (0.2-1.3) mg/dL AST 33 (17-59) U/L ALT 37 (0-50) U/L Alkaline Phosphatase 64 (38-126) U/L Troponin I (0.000-0.033) ng/mL NT-Pro-B Natriuret Pep < 20.0 (<300) pg/mL Serum Total Protein 7.3 (6.3-8.2) g/dL Albumin 5.1 H (3.5-5.0) g/dL Urine Color (Yellow) Urine Appearance (Clear) Urine pH (4.6-8.0) Ur Specific [place] (1.005-1.030) Urine Protein (Negative) Urine Glucose (UA) (Negative) mg/dL Urine Ketones (Negative) Urine Blood (Negative) Urine Nitrite (Negative) Urine Bilirubin (Negative) Urine Urobilinogen (0.2) mg/dL Ur Leukocyte Esterase (Negative) U Hyaline Cast (Auto) (0-2) /LPF Urine Microscopic RBC (0-5) /HPF Urine Microscopic WBC (0-5) /HPF Ur Epithelial Cells (None Seen) /HPF Urine Bacteria (None Seen) /HPF Urine Culture Reflexed (NO) Urine Opiates Level (NEGATIVE) Ur Methadone (NEGATIVE) Urine Barbiturates (NEGATIVE) Ur Phencyclidine (PCP) (NEGATIVE) Urine Amphetamine (NEGATIVE) U Benzodiazepine Level (NEGATIVE) Urine Cocaine (NEGATIVE) Urine Marijuana (THC) (NEGATIVE) - Progress Progress: improved Progress Note: 58-year-old male with a significant cardiovascular history presents to the emergency department for evaluation of feeling unwell and experiencing a syncopal episode. Physical exam essentially nonremarkable. Preliminary workup negative. CT head negative for acute intracranial pathology. In light of patient significant past medical history and syncopal episode patient will be admitted for a syncopal workup. Case discussed with who accepts admission to observation at approximately 5:35 PM. Plan of care discussed with patient. He agrees to admission at [facility] for further evaluation and treatment. Portions of this note were created with voice recognition technology. There may be grammatical, spelling, punctuation or sound alike errors Complexity of problem addressed is moderate acute complicated. No critical care time. Complexity of data reviewed and analyzed as extensive. Test ordered test reviewed results analyzed and correlated clinically with history and physical exam. Risk of complication and or risk of morbidity/mortality of patient management is high. Patient requires hospitalization for further evaluation and treatment. Vital stable. Time spent to admit patient is approximately 20 minutes. Plan of care established for shared decision making. No social determinants of health present to impede follow-up. Portions of this note were created with voice recognition technology. There may be grammatical, spelling, punctuation or sound alike errors 09/27/24 17:39 Counseled pt/family regarding: lab results, diagnosis, need for follow-up, rad results - Departure Departure Disposition: Observation Clinical Impression: Syncope Condition: Stable Critical Care Time: No Referrals: TYRONE GREEN [Primary Care Provider, UNKNOWN] - Follow up/PCP as directed
[2024-09-27 17:11] LABS: Amphetamine,Urine NEGATIVE (NEGATIVE); Barbiturate,Urine NEGATIVE (NEGATIVE); Benzodiazepine,Urine NEGATIVE (NEGATIVE); Cocaine,Urine NEGATIVE (NEGATIVE); Methadone,Urine NEGATIVE (NEGATIVE); Opiate,Urine NEGATIVE (NEGATIVE); PCP,Urine NEGATIVE (NEGATIVE); THC,Urine NEGATIVE (NEGATIVE)
--- NOTE | 2024-09-27 17:15 | XRAY ---
Indication: Dizziness, nausea, and vomiting 5 days. Multiple contiguous axial images obtained through the head without contrast. Comparison: None Normal appearing brain parenchyma, ventricles, and bony calvarium for patient's age. Visualized paranasal sinuses and mastoid air cells are clear. Impression: Normal CT head without contrast exam.
[2024-09-27 17:16] LABS: ALBUMIN 5.1 g/dL (3.5-5.0); ALKALINE PHOSPHATASE 64 U/L (38-126); ANION GAP 21.7 MEQ/L (5-15); BLOOD UREA NITROGEN 8 mg/dL (9-20); CHLORIDE 97 mmol/L (98-107); Calcium 9.9 mg/dL (8.4-10.2); Carbon Dioxide 21 mmol/L (22-30); Creatinine 1 0.74 mg/dL (0.66-1.25); EST GLOMERULAR FILTRATION RATE 106.3 ML/MIN; Glucose 131 mg/dL (74-106); NT PRO BNPII < 20.0 pg/mL (<300); Potassium 3.9 mmol/L (3.5-5.1); SGOT/AST 33 U/L (17-59); SGPT/ALT 37 U/L (0-50); SODIUM 135 mmol/L (135-145); Total Protein 7.3 g/dL (6.3-8.2)
[2024-09-27] MEDS ORDERED: Zofran 4 MG/2 ML VIAL ONE (17:56)
[2024-09-27] MEDS: Zofran 4 MG/2 ML VIAL IV ONE (17:57)
[2024-09-27] MEDS: Nicoderm CQ 21 MG TOP ONE (18:57)
[2024-09-27] MEDS ORDERED: HUMALOG SQ PRN (20:25)
--- NOTE | 2024-09-27 20:29 | PCM.HP ---
History of Present Illness - Chief Complaint Chief Complaint: syncope Date: 09/27/24 History of Present Illness: is a 58 year old male With past medical history significant for diabetes mellitus ,hypertension, coronary artery disease status post PCI, hyperlipidemia who came to ER for evaluation of ongoing dizziness and questionable syncope. Patient told me that he was on metformin 2 months ago he is being switched to farxiga which was not going well with his diabetes. His blood sugar were staying elevated. Recently he tried to use Trulicity from his prescription since then he is having these episodes of dizziness and brain fogging. He told me that he is also having a lot of stresses going on since his brother recently, in regard to syncope he was not able to tell me exact detail. He just told me 1 time he felt that he lost consult consciousness or went into depressed sleep. He feels more dizzy upon standing and walking around. Denied having any vertigo spinning movements. Did not have any chest pain shortness of breath he further told me he has been nauseated for last 1 week and was not eating well. As far as blood sugar related since he injected Trulicity he is feeling that his blood sugar are running much lower than base line and he is attributing all his symptoms towards that. In the ER vital signs were pretty stable as well as blood workup concerned all came out unremarkable except high anion gap, urine unremarkable for infection urine toxicology negative CT head unremarkable. Patient is admitting for further workup - Review of Systems All Other Systems: Reviewed and Negative Medications & Allergies Home Medications: Home Medication List Amlodipine Besylate 10 mg PO DAILY 09/27/24 [History Confirmed 09/27/24] Atorvastatin Calcium [Lipitor 20MG Tablet] 40 mg PO DAILY 09/27/24 [History Confirmed 09/27/24] Clopidogrel Bisulfate [Plavix] 75 mg PO DAILY 09/27/24 [History Confirmed 09/27/24] Evolocumab [Repatha Sureclick] 1 mg SQ WEEKLY 09/27/24 [History Confirmed 09/27/24] Lisinopril 10 mg [Zestril 10 MG] 10 mg PO DAILY 09/27/24 [History Confirmed 09/27/24] Metoprolol Tartrate 25 mg [Lopressor 25MG Tab] 25 mg PO DAILY 09/27/24 [History Confirmed 09/27/24] Allergies/Adverse Reactions: Allergies Allergy/AdvReac Type Severity Reaction Status Date / Time albuterol AdvReac Verified 09/27/24 15:45 - Past Medical History Past Medical History: Yes Neurological History: No Pertinent History ENT History: No Pertinent History Cardiac History: Coronary Artery Disease, High Cholesterol, Hypertension, Myocardial Infarction ([place]) Respiratory History: No Pertinent History Endocrine Medical History: Diabetes Type II Musculoskelatal History: Arthritis GI Medical History: No Pertinent History History: No Pertinent History Pyscho-Social History: Anxiety Male Reproductive Disorders: No Pertinent History - Past Surgical History Past Surgical History: Yes Neuro Surgical History: No Pertinent History Cardiac History: Cardiac Catheterization, Cardiac Stent Respiratory Surgery: No Pertinent History GI Surgical History: No Pertinent History Genitourinary Surgical Hx: No Pertinent History Musculskeletal Surgical Hx: No Pertinent History Male Surgical History: No Pertinent History Significant Family History: no pertinent family hx (No family history pertaining to this admission reported.) - Social History Smoking Status: Current every day smoker Exposure to second hand smoke: Yes Alcohol: Occasionally Drug Use: none - Social Determinants of Health Will the patient participate in the screening: Yes Do you worry about a steady place to live?: No Do you have any problems with any of the following?: No known problems In the past 12 months,have you had to go without utilities?: No Have you or anyone in your house had to go without enough: No Transportation Issues: No Has anyone in your support network made you feel unsafe?: No Does the patient want assistance with any of the above?: No - Physical Exam Vital Signs: Vital Signs - 24 hr Temp Pulse Resp BP BP Pulse Ox 09/27/24 19:27 98.5 F 85 18 146/83 97 09/27/24 18:00 128/72 09/27/24 17:42 97 09/27/24 17:30 84 19 137/78 97 09/27/24 17:00 85 26 H 137/76 96 09/27/24 16:30 87 21 148/78 97 09/27/24 16:25 98 09/27/24 16:13 88 19 121/79 97 09/27/24 16:12 92 H 19 135/81 98 09/27/24 16:10 97 H 19 136/73 94 L 09/27/24 15:54 97 F 96 H 20 172/97 97 Additional Findings: 09/27/24 20:28 HEENT Young aged, average built in no distress NECK Supple,no thyromegaly, CVS S1+S2 + 0, no murmers RESP Bilateral equal air entry without Crepts/Wheezes heard GIT Soft non tender,non distended Skin, No rah, no Bruises LEGS No Edema PSYCH Normal,mood, judgement and insight NEURO AOX3, no focal deficit Results - Labs Lab/Micro Results: Lab Results-Last 24 Hours 09/27/24 09/27/24 09/27/24 Range/Units 15:48 16:00 16:00 WBC 9.3 H (4.23-9.07) x10^3/uL RBC 4.80 (4.63-6.08) x10^6/uL Hgb 15.6 (13.7-17.5) g/dL Hct 42.0 (40.1-51.0) % MCV 87.5 (79.0-92.2) fL MCH 32.5 H (25.7-32.2) pg MCHC 37.1 H (32.3-36.5) g/dL RDW 11.4 L (11.6-14.4) % Plt Count 301 (163-337) x10^3/uL MPV 8.4 L (9.4-12.4) fL Gran % 54.4 (34.0-67.9) % Immature Gran % (Auto) 0.1 (0.001-0.429) % Nucleat RBC Rel Count 0.0 (0.00-0.2) % Eos # (Auto) 0.21 (0.04-0.54) x10^3/uL Immature Gran # (Auto) 0.01 (0.001-0.031) x10^3u/L Absolute Lymphs (auto) 3.03 (1.32-3.57) x10^3/uL Absolute Monos (auto) 0.89 H (0.30-0.82) x10^3/uL Absolute Nucleated RBC 0.00 (0.00-0.012) x10^3u/L Lymphocytes % 32.7 (21.8-53.1) % Monocytes % 9.6 (5.3-12.2) % Eosinophils % 2.3 (0.8-7.0) % Basophils % 0.9 (0.2-1.2) % Absolute Granulocytes 5.05 (1.78-5.38) x10^3/uL Basophils # 0.08 (0.01-0.08) x10^3/uL Sodium 135 (135-145) mmol/L Potassium 3.9 (3.5-5.1) mmol/L Chloride 97 L (98-107) mmol/L Carbon Dioxide 21 L (22-30) mmol/L Anion Gap 21.7 H (5-15) MEQ/L BUN 8 L (9-20) mg/dL Creatinine 0.74 (0.66-1.25) mg/dL Estimated GFR 106.3 ML/MIN Glucose 131 H (74-106) mg/dL POC Glucometer 164 H (74 to 106) mg/dL Calcium 9.9 (8.4-10.2) mg/dL Total Bilirubin 0.90 (0.2-1.3) mg/dL AST 33 (17-59) U/L ALT 37 (0-50) U/L Alkaline Phosphatase 64 (38-126) U/L Troponin I (0.000-0.033) ng/mL NT-Pro-B Natriuret Pep < 20.0 (<300) pg/mL Serum Total Protein 7.3 (6.3-8.2) g/dL Albumin 5.1 H (3.5-5.0) g/dL Urine Color (Yellow) Urine Appearance (Clear) Urine pH (4.6-8.0) Ur Specific [facility] (1.005-1.030) Urine Protein (Negative) Urine Glucose (UA) (Negative) mg/dL Urine Ketones (Negative) Urine Blood (Negative) Urine Nitrite (Negative) Urine Bilirubin (Negative) Urine Urobilinogen (0.2) mg/dL Ur Leukocyte Esterase (Negative) U Hyaline Cast (Auto) (0-2) /LPF Urine Microscopic RBC (0-5) /HPF Urine Microscopic WBC (0-5) /HPF Ur Epithelial Cells (None Seen) /HPF Urine Bacteria (None Seen) /HPF Urine Culture Reflexed (NO) Urine Opiates Level (NEGATIVE) Ur Methadone (NEGATIVE) Urine Barbiturates (NEGATIVE) Ur Phencyclidine (PCP) (NEGATIVE) Urine Amphetamine (NEGATIVE) U Benzodiazepine Level (NEGATIVE) Urine Cocaine (NEGATIVE) Urine Marijuana (THC) (NEGATIVE) 09/27/24 09/27/24 09/27/24 Range/Units 16:00 16:25 16:25 WBC (4.23-9.07) x10^3/uL RBC (4.63-6.08) x10^6/uL Hgb (13.7-17.5) g/dL Hct (40.1-51.0) % MCV (79.0-92.2) fL MCH (25.7-32.2) pg MCHC (32.3-36.5) g/dL RDW (11.6-14.4) % Plt Count (163-337) x10^3/uL MPV (9.4-12.4) fL Gran % (34.0-67.9) % Immature Gran % (Auto) (0.001-0.429) % Nucleat RBC Rel Count (0.00-0.2) % Eos # (Auto) (0.04-0.54) x10^3/uL Immature Gran # (Auto) (0.001-0.031) x10^3u/L Absolute Lymphs (auto) (1.32-3.57) x10^3/uL Absolute Monos (auto) (0.30-0.82) x10^3/uL Absolute Nucleated RBC (0.00-0.012) x10^3u/L Lymphocytes % (21.8-53.1) % Monocytes % (5.3-12.2) % Eosinophils % (0.8-7.0) % Basophils % (0.2-1.2) % Absolute Granulocytes (1.78-5.38) x10^3/uL Basophils # (0.01-0.08) x10^3/uL Sodium (135-145) mmol/L Potassium (3.5-5.1) mmol/L Chloride (98-107) mmol/L Carbon Dioxide (22-30) mmol/L Anion Gap (5-15) MEQ/L BUN (9-20) mg/dL Creatinine (0.66-1.25) mg/dL Estimated GFR ML/MIN Glucose (74-106) mg/dL POC Glucometer (74 to 106) mg/dL Calcium (8.4-10.2) mg/dL Total Bilirubin (0.2-1.3) mg/dL AST (17-59) U/L ALT (0-50) U/L Alkaline Phosphatase (38-126) U/L Troponin I < 0.012 (0.000-0.033) ng/mL NT-Pro-B Natriuret Pep (<300) pg/mL Serum Total Protein (6.3-8.2) g/dL Albumin (3.5-5.0) g/dL Urine Color Yellow (Yellow) Urine Appearance Clear (Clear) Urine pH 6.0 (4.6-8.0) Ur Specific [facility] <=1.005 (1.005-1.030) Urine Protein Negative (Negative) Urine Glucose (UA) Negative (Negative) mg/dL Urine Ketones Negative (Negative) Urine Blood Negative (Negative) Urine Nitrite Negative (Negative) Urine Bilirubin Negative (Negative) Urine Urobilinogen 0.2 (0.2) mg/dL Ur Leukocyte Esterase Negative (Negative) U Hyaline Cast (Auto) NONE SEEN (0-2) /LPF Urine Microscopic RBC 0-2 (0-5) /HPF Urine Microscopic WBC 0-2 (0-5) /HPF Ur Epithelial Cells None Seen (None Seen) /HPF Urine Bacteria None Seen (None Seen) /HPF Urine Culture Reflexed NO (NO) Urine Opiates Level NEGATIVE (NEGATIVE) Ur Methadone NEGATIVE (NEGATIVE) Urine Barbiturates NEGATIVE (NEGATIVE) Ur Phencyclidine (PCP) NEGATIVE (NEGATIVE) Urine Amphetamine NEGATIVE (NEGATIVE) U Benzodiazepine Level NEGATIVE (NEGATIVE) Urine Cocaine NEGATIVE (NEGATIVE) Urine Marijuana (THC) NEGATIVE (NEGATIVE) - Radiology Impressions Radiology Exams & Impressions: Radiology Procedures Category Date Time Status HEAD WITHOUT CONTRAST [CT] Stat Exams 09/27/24 16:37 Completed Assessment/Plan (1) Syncope Current Visit: Yes Status: Acute Code(s): R55 - SYNCOPE AND COLLAPSE (2) Dizziness Current Visit: Yes Status: Acute Code(s): R42 - DIZZINESS AND GIDDINESS (3) Hypertension Current Visit: Yes Status: Acute Code(s): I10 - ESSENTIAL (PRIMARY) HYPERT ENSION (4) Hypertension Current Visit: Yes Status: Acute Code(s): I10 - ESSENTIAL (PRIMARY) HYPERTENSION (5) Diabetes mellitus Current Visit: Yes Status: Acute Code(s): E11.9 - TYPE 2 DIABETES MELLITUS WITHOUT COMPLICATIONS Telemedicine Encounter - Telemedicine Encounter Telemedicine Encounter: The entirety of this encounter was performed via TelemedicineThis visit was performed using real-time audio and video connection between my location and thepatients locationwith the assistance of a surrogateat the patients loca tion. Written or verbal consent was obtained from the patient/guardian to perform this visit usingsynchronoustelemedicine technology. Any patient questions regarding the telemedicine interaction were answered. Dizziness/questionable syncope Seems related to his fluctuating blood sugar levels since he been switched from metformin to Farxiga and lately trirf Trulicity from his 's prescription CT head unremarkable Urine toxicology negative Keep admit on telemetry Rule out for orthostatic hypotension Continue hydration Diabetes mellitus type 2 Will keep him out of all kind of antidiabetics for now Will continue sliding scale coverage Check HbA1c Hypertension Blood pressure running to softer side Keep holding home blood pressure meds except BB Hyperlipidemia C/w lipitor Coronary artry disease S/p PCI 2017 No chest pain DVT PPX Lovenox Code status D/c planning, pending clinical stabiliy, I have reviewed pt labs, v/s imaging in detail, all question concerns were addressed
[2024-09-27] MEDS ORDERED: NON-FORMULARY ITEM (Evolocumab [Repatha Sureclick] 140 MG/ML Pen.Injctr) SQ SCH (20:30)
[2024-09-27] MEDS: Sodium Chloride 0.9% 1000 ML 1,000 ML IV SCH (21:45)
[2024-09-28 02:10] LABS: Hematocrit 40.4 % (40.1-51.0); Hemoglobin 14.7 g/dL (13.7-17.5); Mean Corpuscular Hemoglobin 32.4 pg (25.7-32.2); Mean Corpuscular Hgb Concent. 36.4 g/dL (32.3-36.5); Mean Platelet Volume 8.3 fL (9.4-12.4); Platelet Count 240 x10^3/uL (163-337); Red Blood Count 4.54 x10^6/uL (4.63-6.08); Red Cell Distribution Width 11.6 % (11.6-14.4); White Blood Count 7.6 x10^3/uL (4.23-9.07)
[2024-09-28 02:37] LABS: ANION GAP 14.8 MEQ/L (5-15); Calcium 9.5 mg/dL (8.4-10.2); Creatinine 1 0.72 mg/dL (0.66-1.25); EST GLOMERULAR FILTRATION RATE 107.2 ML/MIN
--- NOTE | 2024-09-28 05:24 | PCM.NOTE ---
Date and Time: 09/28/24 05 Subjective Assessment: Mr. Matute is a 58-year-old male with a past medical history of type 2 diabetes mellitus, hypertension, coronary artery disease status post PCI in 2018, and hyperlipidemia who presented to the ED 09/27/24 for evaluation of dizziness and a possible syncopal episode. The patient reports recent medication changes, including discontinuation of metformin two months ago and transition to [facility], which he states resulted in persistently elevated blood glucose levels. In an attempt to improve glycemic control, he self-administered Trulicity from his wifes prescription, after which he began experiencing persistent dizziness, intermittent "brain fog," and one episode of altered consciousness described as either syncope or a sudden deep sleep. He notes worsened symptoms with standing and ambulation, without associated vertigo or spinning sensation. He denies chest pain, palpitations, or dyspnea. Additionally, he reports a week of nausea and poor oral intake, and he attributes much of his current symptoms to recent episodes of low blood sugar. In the ED, he was hemodynamically stable. Laboratory workup was largely unremarkable aside from a mildly elevated anion gap; urine analysis was negative for infection, urine toxicology was negative, and non-contrast CT head was unremarkable. He is being admitted for further evaluation of dizziness and possible syncope, likely related to glycemic fluctuations. He will remain on telemetry, and orthostatic vitals will be obtained to assess for positional hypotension. Intravenous hydration will be continued. Given the unclear etiology and risk of further hypoglycemia, all antidiabetic medications have been held, and sliding scale insulin coverage will be used temporarily while assessing glucose trends. HbA1c will be obtained to evaluate long-term control. His antihypertensives are being held due to soft blood pressures, except for continuation of his beta-madeleine. He remains chest pain-free at this time. Lipid management with atorvastatin will be continued. Objective Data Vital Signs: Vital Signs - 24 hr Temp Pulse Resp BP BP Pulse Ox 09/28/24 03:28 98.2 F 84 17 125/56 95 09/28/24 00:00 97.5 F 80 18 132/72 96 09/27/24 19:27 98.5 F 85 18 146/83 97 09/27/24 18:00 128/72 09/27/24 17:42 97 09/27/24 17:30 84 19 137/78 97 09/27/24 17:00 85 26 H 137/76 96 09/27/24 16:30 87 21 148/78 97 09/27/24 16:25 98 09/27/24 16:13 88 19 121/79 97 09/27/24 16:12 92 H 19 135/81 98 09/27/24 16:10 97 H 19 136/73 94 L 09/27/24 15:54 97 F 96 H 20 172/97 97 Pain Assessment - Last Documented Pain Intensity 2 Intake and Output: Intake & Output 09/25/24 09/26/24 09/27/24 09/28/24 11:59 11:59 11:59 11:59 Intake Total 240 Balance 240 Weight 91.7 kg Lab Results: Lab Results-Last 24 Hours 09/27/24 09/27/24 09/27/24 Range/Units 15:48 16:00 16:00 WBC 9.3 H (4.23-9.07) x10^3/uL RBC 4.80 (4.63-6.08) x10^6/uL Hgb 15.6 (13.7-17.5) g/dL Hct 42.0 (40.1-51.0) % MCV 87.5 (79.0-92.2) fL MCH 32.5 H (25.7-32.2) pg MCHC 37.1 H (32.3-36.5) g/dL RDW 11.4 L (11.6-14.4) % Plt Count 301 (163-337) x10^3/uL MPV 8.4 L (9.4-12.4) fL Gran % 54.4 (34.0-67.9) % Immature Gran % (Auto) 0.1 (0.001-0.429) % Nucleat RBC Rel Count 0.0 (0.00-0.2) % Eos # (Auto) 0.21 (0.04-0.54) x10^3/uL Immature Gran # (Auto) 0.01 (0.001-0.031) x10^3u/L Absolute Lymphs (auto) 3.03 (1.32-3.57) x10^3/uL Absolute Monos (auto) 0.89 H (0.30-0.82) x10^3/uL Absolute Nucleated RBC 0.00 (0.00-0.012) x10^3u/L Lymphocytes % 32.7 (21.8-53.1) % Monocytes % 9.6 (5.3-12.2) % Eosinophils % 2.3 (0.8-7.0) % Basophils % 0.9 (0.2-1.2) % Absolute Granulocytes 5.05 (1.78-5.38) x10^3/uL Basophils # 0.08 (0.01-0.08) x10^3/uL Sodium 135 (135-145) mmol/L Potassium 3.9 (3.5-5.1) mmol/L Chloride 97 L (98-107) mmol/L Carbon Dioxide 21 L (22-30) mmol/L Anion Gap 21.7 H (5-15) MEQ/L BUN 8 L (9-20) mg/dL Creatinine 0.74 (0.66-1.25) mg/dL Estimated GFR 106.3 ML/MIN Glucose 131 H (74-106) mg/dL POC Glucometer 164 H (74 to 106) mg/dL Calcium 9.9 (8.4-10.2) mg/dL Total Bilirubin 0.90 (0.2-1.3) mg/dL AST 33 (17-59) U/L ALT 37 (0-50) U/L Alkaline Phosphatase 64 (38-126) U/L Troponin I (0.000-0.033) ng/mL NT-Pro-B Natriuret Pep < 20.0 (<300) pg/mL Serum Total Protein 7.3 (6.3-8.2) g/dL Albumin 5.1 H (3.5-5.0) g/dL Urine Color (Yellow) Urine Appearance (Clear) Urine pH (4.6-8.0) Ur Specific Mcintyre (1.005-1.030) Urine Protein (Negative) Urine Glucose (UA) (Negative) mg/dL Urine Ketones (Negative) Urine Blood (Negative) Urine Nitrite (Negative) Urine Bilirubin (Negative) Urine Urobilinogen (0.2) mg/dL Ur Leukocyte Esterase (Negative) U Hyaline Cast (Auto) (0-2) /LPF Urine Microscopic RBC (0-5) /HPF Urine Microscopic WBC (0-5) /HPF Ur Epithelial Cells (None Seen) /HPF Urine Bacteria (None Seen) /HPF Urine Culture Reflexed (NO) Urine Opiates Level (NEGATIVE) Ur Methadone (NEGATIVE) Urine Barbiturates (NEGATIVE) Ur Phencyclidine (PCP) (NEGATIVE) Urine Amphetamine (NEGATIVE) U Benzodiazepine Level (NEGATIVE) Urine Cocaine (NEGATIVE) Urine Marijuana (THC) (NEGATIVE) 09/27/24 09/27/24 09/27/24 Range/Units 16:00 16:25 16:25 WBC (4.23-9.07) x10^3/uL RBC (4.63-6.08) x10^6/uL Hgb (13.7-17.5) g/dL Hct (40.1-51.0) % MCV (79.0-92.2) fL MCH (25.7-32.2) pg MCHC (32.3-36.5) g/dL RDW (11.6-14.4) % Plt Count (163-337) x10^3/uL MPV (9.4-12.4) fL Gran % (34.0-67.9) % Immature Gran % (Auto) (0.001-0.429) % Nucleat RBC Rel Count (0.00-0.2) % Eos # (Auto) (0.04-0.54) x10^3/uL Immature Gran # (Auto) (0.001-0.031) x10^3u/L Absolute Lymphs (auto) (1.32-3.57) x10^3/uL Absolute Monos (auto) (0.30-0.82) x10^3/uL Absolute Nucleated RBC (0.00-0.012) x10^3u/L Lymphocytes % (21.8-53.1) % Monocytes % (5.3-12.2) % Eosinophils % (0.8-7.0) % Basophils % (0.2-1.2) % Absolute Granulocytes (1.78-5.38) x10^3/uL Basophils # (0.01-0.08) x10^3/uL Sodium (135-145) mmol/L Potassium (3.5-5.1) mmol/L Chloride (98-107) mmol/L Carbon Dioxide (22-30) mmol/L Anion Gap (5-15) MEQ/L BUN (9-20) mg/dL Creatinine (0.66-1.25) mg/dL Estimated GFR ML/MIN Glucose (74-106) mg/dL POC Glucometer (74 to 106) mg/dL Calcium (8.4-10.2) mg/dL Total Bilirubin (0.2-1.3) mg/dL AST (17-59) U/L ALT (0-50) U/L Alkaline Phosphatase (38-126) U/L Troponin I < 0.012 (0.000-0.033) ng/mL NT-Pro-B Natriuret Pep (<300) pg/mL Serum Total Protein (6.3-8.2) g/dL Albumin (3.5-5.0) g/dL Urine Color Yellow (Yellow) Urine Appearance Clear (Clear) Urine pH 6.0 (4.6-8.0) Ur Specific Mcintyre <=1.005 (1.005-1.030) Urine Protein Negative (Negative) Urine Glucose (UA) Negative (Negative) mg/dL Urine Ketones Negative (Negative) Urine Blood Negative (Negative) Urine Nitrite Negative (Negative) Urine Bilirubin Negative (Negative) Urine Urobilinogen 0.2 (0.2) mg/dL Ur Leukocyte Esterase Negative (Negative) U Hyaline Cast (Auto) NONE SEEN (0-2) /LPF Urine Microscopic RBC 0-2 (0-5) /HPF Urine Microscopic WBC 0-2 (0-5) /HPF Ur Epithelial Cells None Seen (None Seen) /HPF Urine Bacteria None Seen (None Seen) /HPF Urine Culture Reflexed NO (NO) Urine Opiates Level NEGATIVE (NEGATIVE) Ur Methadone NEGATIVE (NEGATIVE) Urine Barbiturates NEGATIVE (NEGATIVE) Ur Phencyclidine (PCP) NEGATIVE (NEGATIVE) Urine Amphetamine NEGATIVE (NEGATIVE) U Benzodiazepine Level NEGATIVE (NEGATIVE) Urine Cocaine NEGATIVE (NEGATIVE) Urine Marijuana (THC) NEGATIVE (NEGATIVE) 09/27/24 09/27/24 09/28/24 Range/Units 20:02 20:50 02:08 WBC (4.23-9.07) x10^3/uL RBC (4.63-6.08) x10^6/uL Hgb (13.7-17.5) g/dL Hct (40.1-51.0) % MCV (79.0-92.2) fL MCH (25.7-32.2) pg MCHC (32.3-36.5) g/dL RDW (11.6-14.4) % Plt Count (163-337) x10^3/uL MPV (9.4-12.4) fL Gran % (34.0-67.9) % Immature Gran % (Auto) (0.001-0.429) % Nucleat RBC Rel Count (0.00-0.2) % Eos # (Auto) (0.04-0.54) x10^3/uL Immature Gran # (Auto) (0.001-0.031) x10^3u/L Absolute Lymphs (auto) (1.32-3.57) x10^3/uL Absolute Monos (auto) (0.30-0.82) x10^3/uL Absolute Nucleated RBC (0.00-0.012) x10^3u/L Lymphocytes % (21.8-53.1) % Monocytes % (5.3-12.2) % Eosinophils % (0.8-7.0) % Basophils % (0.2-1.2) % Absolute Granulocytes (1.78-5.38) x10^3/uL Basophils # (0.01-0.08) x10^3/uL Sodium (135-145) mmol/L Potassium (3.5-5.1) mmol/L Chloride (98-107) mmol/L Carbon Dioxide (22-30) mmol/L Anion Gap (5-15) MEQ/L BUN (9-20) mg/dL Creatinine (0.66-1.25) mg/dL Estimated GFR ML/MIN Glucose (74-106) mg/dL POC Glucometer 178 H (74 to 106) mg/dL Calcium (8.4-10.2) mg/dL Total Bilirubin (0.2-1.3) mg/dL AST (17-59) U/L ALT (0-50) U/L Alkaline Phosphatase (38-126) U/L Troponin I < 0.012 < 0.012 (0.000-0.033) ng/mL NT-Pro-B Natriuret Pep (<300) pg/mL Serum Total Protein (6.3-8.2) g/dL Albumin (3.5-5.0) g/dL Urine Color (Yellow) Urine Appearance (Clear) Urine pH (4.6-8.0) Ur Specific Mcintyre (1.005-1.030) Urine Protein (Negative) Urine Glucose (UA) (Negative) mg/dL Urine Ketones (Negative) Urine Blood (Negative) Urine Nitrite (Negative) Urine Bilirubin (Negative) Urine Urobilinogen (0.2) mg/dL Ur Leukocyte Esterase (Negative) U Hyaline Cast (Auto) (0-2) /LPF Urine Microscopic RBC (0-5) /HPF Urine Microscopic WBC (0-5) /HPF Ur Epithelial Cells (None Seen) /HPF Urine Bacteria (None Seen) /HPF Urine Culture Reflexed (NO) Urine Opiates Level (NEGATIVE) Ur Methadone (NEGATIVE) Urine Barbiturates (NEGATIVE) Ur Phencyclidine (PCP) (NEGATIVE) Urine Amphetamine (NEGATIVE) U Benzodiazepine Level (NEGATIVE) Urine Cocaine (NEGATIVE) Urine Marijuana (THC) (NEGATIVE) 09/28/24 09/28/24 Range/Units 02:08 02:08 WBC 7.6 (4.23-9.07) x10^3/uL RBC 4.54 L (4.63-6.08) x10^6/uL Hgb 14.7 (13.7-17.5) g/dL Hct 40.4 (40.1-51.0) % MCV 89.0 (79.0-92.2) fL MCH 32.4 H (25.7-32.2) pg MCHC 36.4 (32.3-36.5) g/dL RDW 11.6 (11.6-14.4) % Plt Count 240 (163-337) x10^3/uL MPV 8.3 L (9.4-12.4) fL Gran % (34.0-67.9) % Immature Gran % (Auto) (0.001-0.429) % Nucleat RBC Rel Count (0.00-0.2) % Eos # (Auto) (0.04-0.54) x10^3/uL Immature Gran # (Auto) (0.001-0.031) x10^3u/L Absolute Lymphs (auto) (1.32-3.57) x10^3/uL Absolute Monos (auto) (0.30-0.82) x10^3/uL Absolute Nucleated RBC (0.00-0.012) x10^3u/L Lymphocytes % (21.8-53.1) % Monocytes % (5.3-12.2) % Eosinophils % (0.8-7.0) % Basophils % (0.2-1.2) % Absolute Granulocytes (1.78-5.38) x10^3/uL Basophils # (0.01-0.08) x10^3/uL Sodium 136 (135-145) mmol/L Potassium 4.0 (3.5-5.1) mmol/L Chloride 101 (98-107) mmol/L Carbon Dioxide 25 (22-30) mmol/L Anion Gap 14.8 (5-15) MEQ/L BUN 9 (9-20) mg/dL Creatinine 0.72 (0.66-1.25) mg/dL Estimated GFR 107.2 ML/MIN Glucose 136 H (74-106) mg/dL POC Glucometer (74 to 106) mg/dL Calcium 9.5 (8.4-10.2) mg/dL Total Bilirubin (0.2-1.3) mg/dL AST (17-59) U/L ALT (0-50) U/L Alkaline Phosphatase (38-126) U/L Troponin I (0.000-0.033) ng/mL NT-Pro-B Natriuret Pep (<300) pg/mL Serum Total Protein (6.3-8.2) g/dL Albumin (3.5-5.0) g/dL Urine Color (Yellow) Urine Appearance (Clear) Urine pH (4.6-8.0) Ur Specific Mcintyre (1.005-1.030) Urine Protein (Negative) Urine Glucose (UA) (Negative) mg/dL Urine Ketones (Negative) Urine Blood (Negative) Urine Nitrite (Negative) Urine Bilirubin (Negative) Urine Urobilinogen (0.2) mg/dL Ur Leukocyte Esterase (Negative) U Hyaline Cast (Auto) (0-2) /LPF Urine Microscopic RBC (0-5) /HPF Urine Microscopic WBC (0-5) /HPF Ur Epithelial Cells (None Seen) /HPF Urine Bacteria (None Seen) /HPF Urine Culture Reflexed (NO) Urine Opiates Level (NEGATIVE) Ur Methadone (NEGATIVE) Urine Barbiturates (NEGATIVE) Ur Phencyclidine (PCP) (NEGATIVE) Urine Amphetamine (NEGATIVE) U Benzodiazepine Level (NEGATIVE) Urine Cocaine (NEGATIVE) Urine Marijuana (THC) (NEGATIVE) Radiology Exams: Radiology Procedures Category Date Time Status HEAD WITHOUT CONTRAST [CT] Stat Exams 09/27/24 16:37 Completed Medications: Medications Generic Name Dose Route Start Last Admin Trade Name Freq PRN Reason Stop Dose Admin Clopidogrel Bisulfate 75 mg 09/28/24 10:00 Clopidogrel Bisulfate 75 Mg Tablet PO 10/28/24 09:59 DAILY ADEN Enoxaparin Sodium 40 mg 09/28/24 10:00 Enoxaparin Sodium 40 Mg/0.4 Ml Syringe SQ 10/28/24 09:59 DAILY ADEN Sodium Chloride 1,000 mls @ 100 mls/hr 09/27/24 20:30 09/27/24 21:45 Sodium Chloride 0.9% 1000 Ml IV 10/27/24 20:29 100 mls/hr .Q10H ADEN Administration Insulin Human Lispro 0 unit 09/27/24 20:25 Insulin Lispro 1 Unit SQ 10/27/24 20:24 UD PRN HYPERGLYCEMIA Metoprolol Tartrate 25 mg 09/28/24 10:00 Metoprolol Tartrate 25 Mg Tab PO 10/28/24 09:59 DAILY ADEN Non-Formulary Medication 40 mg 09/28/24 10:00 Atorvastatin Calcium PO 10/28/24 09:59 DAILY ADEN Non-Formulary Medication 1 mg 09/27/24 20:30 Evolocumab [Repatha Colinick] SQ 10/27/24 20:29 WEEKLY ADEN Discontinued Medications Generic Name Dose Route Start Last Admin Trade Name Freq PRN Reason Stop Dose Admin Nicotine 21 mg 09/27/24 18:02 09/27/24 18:57 Nicotine 21 Mg/Patch Patch TOP 09/27/24 18:03 21 mg STAT ONE Administration Ondansetron HCl 4 mg 09/27/24 17:54 09/27/24 17:57 Ondansetron Hcl 4 Mg/2 Ml Vial IV 09/27/24 17:55 4 mg STAT ONE Administration Ondansetron HCl Confirm 09/27/24 17:56 Ondansetron Hcl 4 Mg/2 Ml Vial Administered 09/27/24 17:57 Dose 4 mg .ROUTE .STK-MED ONE Assessment/Plan (1) Syncope Current Visit: Yes Status: Acute Assessment & Plan: -?related to his fluctuating blood sugar levels since he been switched from metformin to Farxiga and lately trirf Trulicity from his 's prescription -CT head unremarkable -Urine toxicology negative -Keep admit on telemetry -orthostatic vitals -Continue hydration -consider echo and carotid -tsh Code(s): R55 - SYNCOPE AND COLLAPSE (2) HLD (hyperlipidemia) Current Visit: Yes Status: Acute Assessment & Plan: -continue statin Code(s): E78.5 - HYPERLIPIDEMIA, UNSPECIFIED (3) CAD (coronary artery disease) Current Visit: Yes Status: Acute Assessment & Plan: -s/p PCI 2017 -no complaints of CP Code(s): I25.10 - ATHSCL HEART DISEASE OF [place] CORONARY ARTERY W/O ANG PCTRS (4) Diabetes mellitus Current Visit: Yes Status: Acute Assessment & Plan: -SSI -ADA diet -A1c DVT PPX Lovenox Code status Full code D/c planning, pending clinical stabiliy Code(s): E11.9 - TYPE 2 DIABETES MELLITUS WITHOUT COMPLICATIONS (5) Dizziness Current Visit: Yes Status: Acute Code(s): R42 - DIZZINESS AND GIDDINESS (6) Hypertension Current Visit: Yes Status: Acute Code(s): I10 - ESSENTIAL (PRIMARY) HYPERTENSION
[2024-09-28] MEDS ORDERED: Zofran 4 MG/2 ML VIAL ONE (06:54)
[2024-09-28] MEDS: Zofran 4 MG/2 ML VIAL IV PRN (06:59)
[2024-09-28] MEDS ORDERED: MEDICATION INTERVENTION MC SCH (07:15)
[2024-09-28 08:15] VITALS: RESP 16; TEMP 97.6
[2024-09-28] MEDS ORDERED: NON-FORMULARY ITEM (Atorvastatin Calcium 20 MG Tab) PO SCH (10:00)
[2024-09-28] MEDS: ZOCOR 20MG PO SCH (11:15)
[2024-09-28] MEDS: PLAVIX Tablet PO SCH (11:15)
[2024-09-28] MEDS: Lopressor 25MG Tab PO SCH (11:15)
[2024-09-28] MEDS: ENOXAPARIN SODIUM SQ SCH (11:19)
--- NOTE | 2024-09-28 11:20 | PCM.DS ---
Discharge Summary Date of Admission: 09/27/24 18:12 Date of Discharge: 09/28/24 Admitting Physician: DONNELL LOPEZ MD Primary Care Provider: TYRONE GREEN Allergies Allergies albuterol Adverse Reaction (Verified 09/27/24 15:45) Hospital Summary - Hospital Course Hospital Course: Mr. Matute is a 58-year-old male with a history of type 2 diabetes mellitus, hypertension, coronary artery disease status post PCI in 2018, and hyperlipidemia, who was admitted on September 27, 2024, for evaluation of dizziness and a possible syncopal episode. The patient reported recent medication changes, including discontinuation of metformin two months prior and transition to [facility], which he noted was ineffective in controlling his blood glucose levels. In an attempt to manage his hyperglycemia, he self-administered Trulicity from his wifes prescription. Following this, he developed persistent dizziness, intermittent brain fog, and one episode of altered consciousness described as either a syncopal event or sudden deep sleep. He denied associated chest pain, palpitations, dyspnea, vertigo, or fever, though he endorsed a week of nausea and poor oral intake. He attributed his symptoms to episodes of hypoglycemia. On presentation to the ED, he was hemodynamically stable. Laboratory evaluation was notable for a mildly elevated anion gap; renal function and cardiac markers were within normal limits. Urinalysis and urine toxicology were negative, and a non- contrast head CT demonstrated no acute intracranial process. He was admitted for further evaluation of possible syncope, with telemetry monitoring and orthostatic vitals obtained to assess for positional hypotension. Orthostatic vitals negative. All antidiabetic medications were held due to concern for glycemic variability and potential hypoglycemia, and a sliding scale insulin regimen was initiated. His antihypertensives were withheld due to low-normal blood pressures, except for continuation of his beta-madeleine. He remained asymptomatic with no further episodes of syncope or hemodynamic instability during hospitalization. Despite recommendations for additional inpatient evaluation including echocardiography, TSH testing, and neurologic assessment, the patient declined further workup and expressed a strong desire for discharge home. He was counseled on the risks of incomplete evaluation and the importance of close outpatient follow-up. At the time of discharge, he was clinically stable, at his cognitive baseline, and tolerating oral intake without difficulty with no further syncopal episodes or dizziness. Patient advised to take only medications prescribed to him and follow up with pcp for re-evaluation of his diabetic regimen. I spent 35 minutes [id number] with the patient on the day of discharge performing discharge exam, discussing hospital stay and discharge instructions with patient and caregivers, preparation of discharge records, prescriptions & referral forms and addressing any questions/concerns the patient had as documented above. - Vitals & Intake/Output Vital Signs: Vital Signs Temperature 97.6 F 09/28/24 08:00 Pulse Rate 81 09/28/24 08:00 Respiratory Rate 16 09/28/24 08:00 Blood Pressure 133/73 09/28/24 08:00 O2 Sat by Pulse Oximetry 97 09/28/24 08:00 Intake & Output: Intake & Output 09/25/24 09/26/24 09/27/24 09/28/24 11:59 11:59 11:59 11:59 Intake Total 1020 Balance 1020 Weight 91.7 kg - Lab Result Diagrams: 09/28/24 02:08 09/28/24 02:08 Lab Results-Last 24 Hrs: Lab Results-Last 24 Hours 09/27/24 09/27/24 09/27/24 Range/Units 15:48 16:00 16:00 WBC 9.3 H (4.23-9.07) x10^3/uL RBC 4.80 (4.63-6.08) x10^6/uL Hgb 15.6 (13.7-17.5) g/dL Hct 42.0 (40.1-51.0) % MCV 87.5 (79.0-92.2) fL MCH 32.5 H (25.7-32.2) pg MCHC 37.1 H (32.3-36.5) g/dL RDW 11.4 L (11.6-14.4) % Plt Count 301 (163-337) x10^3/uL MPV 8.4 L (9.4-12.4) fL Gran % 54.4 (34.0-67.9) % Immature Gran % (Auto) 0.1 (0.001-0.429) % Nucleat RBC Rel Count 0.0 (0.00-0.2) % Eos # (Auto) 0.21 (0.04-0.54) x10^3/uL Immature Gran # (Auto) 0.01 (0.001-0.031) x10^3u/L Absolute Lymphs (auto) 3.03 (1.32-3.57) x10^3/uL Absolute Monos (auto) 0.89 H (0.30-0.82) x10^3/uL Absolute Nucleated RBC 0.00 (0.00-0.012) x10^3u/L Lymphocytes % 32.7 (21.8-53.1) % Monocytes % 9.6 (5.3-12.2) % Eosinophils % 2.3 (0.8-7.0) % Basophils % 0.9 (0.2-1.2) % Absolute Granulocytes 5.05 (1.78-5.38) x10^3/uL Basophils # 0.08 (0.01-0.08) x10^3/uL Sodium 135 (135-145) mmol/L Potassium 3.9 (3.5-5.1) mmol/L Chloride 97 L (98-107) mmol/L Carbon Dioxide 21 L (22-30) mmol/L Anion Gap 21.7 H (5-15) MEQ/L BUN 8 L (9-20) mg/dL Creatinine 0.74 (0.66-1.25) mg/dL Estimated GFR 106.3 ML/MIN Glucose 131 H (74-106) mg/dL POC Glucometer 164 H (74 to 106) mg/dL Calcium 9.9 (8.4-10.2) mg/dL Total Bilirubin 0.90 (0.2-1.3) mg/dL AST 33 (17-59) U/L ALT 37 (0-50) U/L Alkaline Phosphatase 64 (38-126) U/L Troponin I (0.000-0.033) ng/mL NT-Pro-B Natriuret Pep < 20.0 (<300) pg/mL Serum Total Protein 7.3 (6.3-8.2) g/dL Albumin 5.1 H (3.5-5.0) g/dL Urine Color (Yellow) Urine Appearance (Clear) Urine pH (4.6-8.0) Ur Specific [place] (1.005-1.030) Urine Protein (Negative) Urine Glucose (UA) (Negative) mg/dL Urine Ketones (Negative) Urine Blood (Negative) Urine Nitrite (Negative) Urine Bilirubin (Negative) Urine Urobilinogen (0.2) mg/dL Ur Leukocyte Esterase (Negative) U Hyaline Cast (Auto) (0-2) /LPF Urine Microscopic RBC (0-5) /HPF Urine Microscopic WBC (0-5) /HPF Ur Epithelial Cells (None Seen) /HPF Urine Bacteria (None Seen) /HPF Urine Culture Reflexed (NO) Urine Opiates Level (NEGATIVE) Ur Methadone (NEGATIVE) Urine Barbiturates (NEGATIVE) Ur Phencyclidine (PCP) (NEGATIVE) Urine Amphetamine (NEGATIVE) U Benzodiazepine Level (NEGATIVE) Urine Cocaine (NEGATIVE) Urine Marijuana (THC) (NEGATIVE) 09/27/24 09/27/24 09/27/24 Range/Units 16:00 16:25 16:25 WBC (4.23-9.07) x10^3/uL RBC (4.63-6.08) x10^6/uL Hgb (13.7-17.5) g/dL Hct (40.1-51.0) % MCV (79.0-92.2) fL MCH (25.7-32.2) pg MCHC (32.3-36.5) g/dL RDW (11.6-14.4) % Plt Count (163-337) x10^3/uL MPV (9.4-12.4) fL Gran % (34.0-67.9) % Immature Gran % (Auto) (0.001-0.429) % Nucleat RBC Rel Count (0.00-0.2) % Eos # (Auto) (0.04-0.54) x10^3/uL Immature Gran # (Auto) (0.001-0.031) x10^3u/L Absolute Lymphs (auto) (1.32-3.57) x10^3/uL Absolute Monos (auto) (0.30-0.82) x10^3/uL Absolute Nucleated RBC (0.00-0.012) x10^3u/L Lymphocytes % (21.8-53.1) % Monocytes % (5.3-12.2) % Eosinophils % (0.8-7.0) % Basophils % (0.2-1.2) % Absolute Granulocytes (1.78-5.38) x10^3/uL Basophils # (0.01-0.08) x10^3/uL Sodium (135-145) mmol/L Potassium (3.5-5.1) mmol/L Chloride (98-107) mmol/L Carbon Dioxide (22-30) mmol/L Anion Gap (5-15) MEQ/L BUN (9-20) mg/dL Creatinine (0.66-1.25) mg/dL Estimated GFR ML/MIN Glucose (74-106) mg/dL POC Glucometer (74 to 106) mg/dL Calcium (8.4-10.2) mg/dL Total Bilirubin (0.2-1.3) mg/dL AST (17-59) U/L ALT (0-50) U/L Alkaline Phosphatase (38-126) U/L Troponin I < 0.012 (0.000-0.033) ng/mL NT-Pro-B Natriuret Pep (<300) pg/mL Serum Total Protein (6.3-8.2) g/dL Albumin (3.5-5.0) g/dL Urine Color Yellow (Yellow) Urine Appearance Clear (Clear) Urine pH 6.0 (4.6-8.0) Ur Specific [place] <=1.005 (1.005-1.030) Urine Protein Negative (Negative) Urine Glucose (UA) Negative (Negative) mg/dL Urine Ketones Negative (Negative) Urine Blood Negative (Negative) Urine Nitrite Negative (Negative) Urine Bilirubin Negative (Negative) Urine Urobilinogen 0.2 (0.2) mg/dL Ur Leukocyte Esterase Negative (Negative) U Hyaline Cast (Auto) NONE SEEN (0-2) /LPF Urine Microscopic RBC 0-2 (0-5) /HPF Urine Microscopic WBC 0-2 (0-5) /HPF Ur Epithelial Cells None Seen (None Seen) /HPF Urine Bacteria None Seen (None Seen) /HPF Urine Culture Reflexed NO (NO) Urine Opiates Level NEGATIVE (NEGATIVE) Ur Methadone NEGATIVE (NEGATIVE) Urine Barbiturates NEGATIVE (NEGATIVE) Ur Phencyclidine (PCP) NEGATIVE (NEGATIVE) Urine Amphetamine NEGATIVE (NEGATIVE) U Benzodiazepine Level NEGATIVE (NEGATIVE) Urine Cocaine NEGATIVE (NEGATIVE) Urine Marijuana (THC) NEGATIVE (NEGATIVE) 09/27/24 09/27/24 09/28/24 Range/Units 20:02 20:50 02:08 WBC (4.23-9.07) x10^3/uL RBC (4.63-6.08) x10^6/uL Hgb (13.7-17.5) g/dL Hct (40.1-51.0) % MCV (79.0-92.2) fL MCH (25.7-32.2) pg MCHC (32.3-36.5) g/dL RDW (11.6-14.4) % Plt Count (163-337) x10^3/uL MPV (9.4-12.4) fL Gran % (34.0-67.9) % Immature Gran % (Auto) (0.001-0.429) % Nucleat RBC Rel Count (0.00-0.2) % Eos # (Auto) (0.04-0.54) x10^3/uL Immature Gran # (Auto) (0.001-0.031) x10^3u/L Absolute Lymphs (auto) (1.32-3.57) x10^3/uL Absolute Monos (auto) (0.30-0.82) x10^3/uL Absolute Nucleated RBC (0.00-0.012) x10^3u/L Lymphocytes % (21.8-53.1) % Monocytes % (5.3-12.2) % Eosinophils % (0.8-7.0) % Basophils % (0.2-1.2) % Absolute Granulocytes (1.78-5.38) x10^3/uL Basophils # (0.01-0.08) x10^3/uL Sodium (135-145) mmol/L Potassium (3.5-5.1) mmol/L Chloride (98-107) mmol/L Carbon Dioxide (22-30) mmol/L Anion Gap (5-15) MEQ/L BUN (9-20) mg/dL Creatinine (0.66-1.25) mg/dL Estimated GFR ML/MIN Glucose (74-106) mg/dL POC Glucometer 178 H (74 to 106) mg/dL Calcium (8.4-10.2) mg/dL Total Bilirubin (0.2-1.3) mg/dL AST (17-59) U/L ALT (0-50) U/L Alkaline Phosphatase (38-126) U/L Troponin I < 0.012 < 0.012 (0.000-0.033) ng/mL NT-Pro-B Natriuret Pep (<300) pg/mL Serum Total Protein (6.3-8.2) g/dL Albumin (3.5-5.0) g/dL Urine Color (Yellow) Urine Appearance (Clear) Urine pH (4.6-8.0) Ur Specific [place] (1.005-1.030) Urine Protein (Negative) Urine Glucose (UA) (Negative) mg/dL Urine Ketones (Negative) Urine Blood (Negative) Urine Nitrite (Negative) Urine Bilirubin (Negative) Urine Urobilinogen (0.2) mg/dL Ur Leukocyte Esterase (Negative) U Hyaline Cast (Auto) (0-2) /LPF Urine Microscopic RBC (0-5) /HPF Urine Microscopic WBC (0-5) /HPF Ur Epithelial Cells (None Seen) /HPF Urine Bacteria (None Seen) /HPF Urine Culture Reflexed (NO) Urine Opiates Level (NEGATIVE) Ur Methadone (NEGATIVE) Urine Barbiturates (NEGATIVE) Ur Phencyclidine (PCP) (NEGATIVE) Urine Amphetamine (NEGATIVE) U Benzodiazepine Level (NEGATIVE) Urine Cocaine (NEGATIVE) Urine Marijuana (THC) (NEGATIVE) 09/28/24 09/28/24 09/28/24 Range/Units 02:08 02:08 07:56 WBC 7.6 (4.23-9.07) x10^3/uL RBC 4.54 L (4.63-6.08) x10^6/uL Hgb 14.7 (13.7-17.5) g/dL Hct 40.4 (40.1-51.0) % MCV 89.0 (79.0-92.2) fL MCH 32.4 H (25.7-32.2) pg MCHC 36.4 (32.3-36.5) g/dL RDW 11.6 (11.6-14.4) % Plt Count 240 (163-337) x10^3/uL MPV 8.3 L (9.4-12.4) fL Gran % (34.0-67.9) % Immature Gran % (Auto) (0.001-0.429) % Nucleat RBC Rel Count (0.00-0.2) % Eos # (Auto) (0.04-0.54) x10^3/uL Immature Gran # (Auto) (0.001-0.031) x10^3u/L Absolute Lymphs (auto) (1.32-3.57) x10^3/uL Absolute Monos (auto) (0.30-0.82) x10^3/uL Absolute Nucleated RBC (0.00-0.012) x10^3u/L Lymphocytes % (21.8-53.1) % Monocytes % (5.3-12.2) % Eosinophils % (0.8-7.0) % Basophils % (0.2-1.2) % Absolute Granulocytes (1.78-5.38) x10^3/uL Basophils # (0.01-0.08) x10^3/uL Sodium 136 (135-145) mmol/L Potassium 4.0 (3.5-5.1) mmol/L Chloride 101 (98-107) mmol/L Carbon Dioxide 25 (22-30) mmol/L Anion Gap 14.8 (5-15) MEQ/L BUN 9 (9-20) mg/dL Creatinine 0.72 (0.66-1.25) mg/dL Estimated GFR 107.2 ML/MIN Glucose 136 H (74-106) mg/dL POC Glucometer 173 H (74 to 106) mg/dL Calcium 9.5 (8.4-10.2) mg/dL Total Bilirubin (0.2-1.3) mg/dL AST (17-59) U/L ALT (0-50) U/L Alkaline Phosphatase (38-126) U/L Troponin I (0.000-0.033) ng/mL NT-Pro-B Natriuret Pep (<300) pg/mL Serum Total Protein (6.3-8.2) g/dL Albumin (3.5-5.0) g/dL Urine Color (Yellow) Urine Appearance (Clear) Urine pH (4.6-8.0) Ur Specific [place] (1.005-1.030) Urine Protein (Negative) Urine Glucose (UA) (Negative) mg/dL Urine Ketones (Negative) Urine Blood (Negative) Urine Nitrite (Negative) Urine Bilirubin (Negative) Urine Urobilinogen (0.2) mg/dL Ur Leukocyte Esterase (Negative) U Hyaline Cast (Auto) (0-2) /LPF Urine Microscopic RBC (0-5) /HPF Urine Microscopic WBC (0-5) /HPF Ur Epithelial Cells (None Seen) /HPF Urine Bacteria (None Seen) /HPF Urine Culture Reflexed (NO) Urine Opiates Level (NEGATIVE) Ur Methadone (NEGATIVE) Urine Barbiturates (NEGATIVE) Ur Phencyclidine (PCP) (NEGATIVE) Urine Amphetamine (NEGATIVE) U Benzodiazepine Level (NEGATIVE) Urine Cocaine (NEGATIVE) Urine Marijuana (THC) (NEGATIVE) Micro Results-Entire Visit: Accuchecks Date 09/28/24 Time 08:15 - Radiology Exams Ordered Rad Exams-Entire Visit: Radiology Procedures Category Date Time Status HEAD WITHOUT CONTRAST [CT] Stat Exams 09/27/24 16:37 Completed Discharge Exam General Appearance: no apparent distress Neurologic Exam: alert, oriented x 3, cooperative Eye Exam: PERRL Ears, Nose, Throat Exam: normal ENT inspection Neck Exam: normal inspection Respiratory Exam: normal breath sounds, lungs clear Cardiovascular Exam: regular rate/rhythm, normal heart sounds Gastrointestinal/Abdomen Exam: soft, normal bowel sounds Male Genitalia Exam: deferred Rectal Exam: deferred Extremity Exam: normal inspection Skin Exam: normal color Final Diagnosis/Problem List - Final Discharge Diagnosis/Problem (1) Syncope Current Visit: Yes Status: Acute Code(s): R55 - SYNCOPE AND COLLAPSE (2) HLD (hyperlipidemia) Current Visit: Yes Status: Chronic Code(s): E78.5 - HYPERLIPIDEMIA, UNSPECIFIED (3) CAD (coronary artery disease) Current Visit: Yes Status: Chronic Code(s): I25.10 - ATHSCL HEART DISEASE OF [place] CORONARY ARTERY W/O ANG PCTRS (4) Diabetes mellitus Current Visit: Yes Status: Chronic Code(s): E11.9 - TYPE 2 DIABETES MELLITUS WITHOUT COMPLICATIONS (5) Dizziness Current Visit: Yes Status: Chronic Code(s): R42 - DIZZINESS AND GIDDINESS (6) Hypertension Current Visit: Yes Status: Chronic Code(s): I10 - ESSENTIAL (PRIMARY) HYPERTENSION - Discharge Discharge Date: 09/28/24 Disposition: Home, Self-Care Condition: Stable Prescriptions: Continue Evolocumab [Repatha Sureclick] 1 mg SQ WEEKLY Metoprolol Tartrate 25 mg [Lopressor 25MG Tab] 25 mg PO DAILY Lisinopril 10 mg [Zestril 10 MG] 10 mg PO DAILY Clopidogrel Bisulfate [Plavix] 75 mg PO DAILY Atorvastatin Calcium [Lipitor 20MG Tablet] 40 mg PO DAILY Amlodipine Besylate 10 mg PO DAILY Follow up with: TYRONE GREEN [Primary Care Provider, UNKNOWN] Referral Note: Tuesday if available
[2024-09-28 11:54] VITALS: BP 162/70; PULSE 76; O2SAT 95
== END 2024-09-28 11:40 | disposition home or self-care (01) ==
LOC: ED 15:37 → MED SURG 18:12
PROVIDERS: ADMIT Internal Medicine; ATTEND Internal Medicine
DX: R55 Syncope and collapse (principal); E78.5 Hyperlipidemia, unspecified; I25.10 Atherosclerotic heart disease of native coronary artery without angina pectoris; E11.9 Type 2 diabetes mellitus without complications; R42 Dizziness and giddiness; I10 Essential (primary) hypertension; F17.200 Nicotine dependence, unspecified, uncomplicated; I25.2 Old myocardial infarction; Z79.899 Other long term (current) drug therapy; Z79.01 Long term (current) use of anticoagulants
CPT/HCPCS: 36415; 70450; 80048; 80053; 80307; 81001; 82947; 83880; 84484; 85025; 85027; 93005; 93041; 94760; 96374; 99285; Q3014; 93268; J2405; A9270-GY; G0378